=== PATIENT | male | born 1950 | race Caucasian/White ===

== ENCOUNTER 2019-11-03 09:23 | Outpatient (RCR) | payer MEDICARE, OTHER, SELFPAY | END 2019-11-03 23:59 | disposition home or self-care (01) | LOC: ANHAUDIO 09:23 | PROVIDERS: PCP Family Medicine; Visit Provider Family Medicine | DX: Z46.1 Encounter for fitting and adjustment of hearing aid (principal) | CPT/HCPCS: 92593 ==

== ENCOUNTER 2019-12-16 11:22 | Emergency (ER) | payer MEDICARE, OTHER, SELFPAY ==
[2019-12-16 11:30] VITALS: BP 110/67; PULSE 84; RESP 16; TEMP 37.2; O2SAT 99
--- NOTE | 2019-12-16 11:46 | ED.ABDPAIN ---
HPI - Abdominal Pain General Chief Complaint: Abdominal Pain Stated Complaint: abdominal pain Time Seen by Provider: 12/16/19 11:30 Source: patient Mode of arrival: ambulatory Limitations: no limitations History of Present Illness HPI narrative: Timothy Lindsay is a 69 yo male with a PMH of CKD, memory issues, who comes to express care for evaluation of right lower abdominal pain. Pain started 2 to 3 days ago with gradually increasing intensity rates the pain on palpation at 8 out of 10, has not had anything to eat or drink today as started dry heaving upon awakening. States pain is fine if not moving Related Data Allergies Allergy/AdvReac Type Severity Reaction Status Date / Time piroxicam Allergy Mild PT DOESN'T Verified 04/29/13 08:50 REMEMBER Sulfa (Sulfonamide Allergy Unknown Verified 07/01/17 08:32 Antibiotics) Review of Systems Review of Systems: Narrative: CONSTITUTIONAL: Denies fever, chills, sweats. EYES: Denies visual changes, redness, discharge. ENT: Denies rhinorrhea, congestion, sore throat, otalgia. CARDIOVASCULAR: Denies chest pain, palpitations, edema. RESPIRATORY: Denies dyspnea, wheezing, cough GASTROINTESTINAL: has RLQ abdominal pain, nausea, vomiting, no diarrhea. GENITOURINARY: Denies dysuria, hematuria, abnormal discharge SKIN: Denies rash or itching. MUSCULOSKELETAL: Denies acute back pain, joint pain, or myalgia. NEUROLOGIC: Denies numbness, or focal weakness. PSYCHIATRIC: Denies anxiety or depression. [facility] Past Medical History Medical History (Updated 12/16/19 @ 11:57 by Katelyn Treadwell CNP) Arthritis Interstitial pulmonary disease Family History Family History Mother Depression, Onset Age: 84 Hypertension Patient's mother is Family history of dementia Father Patient's father is Malignant neoplasm of prostate Family history of lymphoma Family history of malignant neoplasm of urinary bladder Grandparent Family history of cardiovascular disease Carcinoma of colon Other Family history of malignant neoplasm of ovary Social History Social History Smoking status: Former smoker Second hand tobacco smoke exposure: Yes Smoking end date: 11/02/02 Alcohol intake: current Comments At time of signature, I agree with nursing past medical, surgical, social and family history. There is no relevant family history pertinent to the presenting complaint. Exam Narrative: Exam Narrative: GENERAL: This is a well-nourished, well-developed patient, in moderate distress. HEAD: normocephalic, atraumatic. EYES: Sclera clear/white. Vision is grossly intact. EARS: External ears normal, Hearing grossly intact. NOSE: External nose normal with no obvious nasal discharge, nares without redness, no rhinorrhea. THROAT: Mucous membranes moist, posterior pharynx clear. NECK: Neck supple, non-tender without lymphadenopathy, CARDIOVASCULAR: Regular rate and rhythm without murmurs, gallops, or rubs. RESPIRATORY: Clear to auscultation. Breath sounds equal bilaterally. No wheezes, rales, or rhonchi. GASTROINTESTINAL: Abdomen soft, tender- RLQ 8/10 with palpation, nondistended. Bowel sounds are hypoactive. No hepato-splenomegaly, or palpable masses. SKIN: warm, intact with no suspicious lesions or rash, good texture and turgor. NEURO: awake, alert, and oriented to person, place and time. There were no obvious focal neurologic abnormalities. Steady gait EXTREMITIES: Normal range of motion. No edema. bilaterally. BACK: Nontender without deformity or crepitance.. Course Course Emergency Course: Discussed physical findings with pt and referred to [facility] ER for labs work/imaging/assessment Vital Signs Vital signs: Vital Signs Temperature 99 F 12/16/19 11:30 Pulse Rate 84 12/16/19 11:30 Respiratory Rate 16 12/16/19 11:30 Blood Pressure 110
--- NOTE | 2019-12-16 11:49 | PC.NURSE ---
After exam and discussion--Jamie Treadwell NP advised he go to ED for further testing and treatment--staff at [place] ED informed.
== END 2019-12-16 11:52 | disposition short-term general hospital (02) ==
PROVIDERS: Emergency Provider Nurse Practitioner; PCP Family Medicine
DX: R10.31 Right lower quadrant pain (principal); Z87.891 Personal history of nicotine dependence; M19.90 Unspecified osteoarthritis, unspecified site
CPT/HCPCS: 99212; G0463

== ENCOUNTER 2019-12-16 12:06 | Inpatient (IN) | payer MEDICARE, OTHER, SELFPAY ==
[2019-12-16] VITALS (9 sets, daily range): BP systolic 102–141; BP diastolic 58–77; PULSE 65–95; RESP 14–23; TEMP 36.6–37.5; O2SAT 92–100; BMI 31.6
--- NOTE | ~2019-12-16 | CT_ITS ---
EXAMINATION: CT abdomen pelvis w con DATE: 12/16/2019 14:11 INDICATION: Right lower quadrant abdominal pain. TECHNIQUE: Computed tomography (CT) of the abdomen and pelvis was performed with 100 mL Omnipaque-350 intravenous contrast. Automated exposure control and iterative reconstruction technique were employe d. The dose-length product was 1095.05 mGy-cm. COMPARISON: Chest CT dated 07/17/2017 FINDINGS: Unchanged flat intrafissural lymph node measuring 6 mm in maximal diameter and 2 mm in thickness suzanne g the anterior right minor fissure. No significant change in chronic mild peripheral reticular opacit ies in the bilateral lower lung zones without honeycombing. Heart size is normal. Atherosclerotic cor onary artery calcifications. No pericardial or pleural effusion. Mild bilateral gynecomastia. Small c alcified gallstone in the dependent neck of the normal appearing gallbladder. Liver, spleen, pancreas , left kidney and bilateral adrenal glands are normal. Approximately 5 cm cysts at the upper and lowe r poles of the right kidney. Prominent inflammatory stranding surrounding the dilated fluid-filled ap pendix which measures up to 16 mm in diameter. There is an obstructing calcified appendicolith in the proximal aspect of the appendix. Prominent likely reactive edematous wall thickening at the tip of t he cecum at the orifice of the appendix. Small bowel is normal with no obstruction. Diverticulum suzanne g the ascending colon without adjacent inflammatory change to suggest diverticulitis. Diffuse mild bl adder wall thickening which could be related to chronic outlet obstruction from the enlarged prostate . No abscess or free intraperitoneal gas. Small fat-containing umbilical hernia. No pathologically en larged abdominal or pelvic lymphadenopathy. There is calcified atherosclerosis of the aorta and many of the other arteries. Mild lumbar levoscoliosis with severe spondylosis. IMPRESSION: 1. Acute appendicitis. Dr. Gutierrez discussed these findings with Dr. Love at 2:22 PM. 2. Mild peripheral chronic interstitial lung disease with nonspecific interstitial pneumonia (NSIP) p attern. 3. Small fat-containing umbilical hernia. Reviewed, dictated and finalized at location A. [employer] IMPRESSION: 1. Acute appendicitis. Dr. Gutierrez discussed these findings with Dr. Love at 2:22 PM. 2. Mild peripheral chronic interstitial lung disease with nonspecific interstit ial pneumonia (NSIP) pattern. 3. Small fat-containing umbilical hernia.
[2019-12-16 12:20] LABS: Basophils Percent Auto 0.2 % (0.2-1.2); Eosinophils Percent Auto 0.1 % (0-4.4); Hematocrit 46.4 % (42.0-52.0); Hemoglobin 15.2 g/dL (14.0-18.0); Immature Granulocyte Absolute 0.07 K/mm3 (0.00-0.031); Immature Granulocyte Percent A 0.4 % (0-0.5); Lymphocytes Absolute Auto 1.57 K/mm3 (0.9-3.2); Lymphocytes Percent Auto 9.1 % (18.3-44.2); Mean Corpuscular HGB Conc 32.8 g/dl (32-36); Mean Corpuscular Hemoglobin 30.5 pg (26-34); Mean Platelet Volume 10.6 fl (7.4-10.4); Monocytes Absolute Auto 1.7 K/mm3 (0.1-0.6); Monocytes Percent Auto 9.9 % (2.6-8.5); Neutrophils Absolute Auto 13.8 K/mm3 (1.3-6.7); Neutrophils Percent Auto 80.3 % (45.5-73.1); Platelet Count Result 237 k/mm3 (150-375); Red Blood Count 4.99 M/mm3 (4.6-6.20); Red Cell Distribution Width 13.4 % (11.5-14.5); White Blood Count 17.2 K/mm3 (4.5-10.0)
--- NOTE | 2019-12-16 13:20 | ED.ABDPAIN ---
HPI - Abdominal Pain General Chief Complaint: Abdominal Pain Stated Complaint: abd pain Time Seen by Provider: 12/16/19 13:20 Source: patient Mode of arrival: ambulatory Limitations: no limitations History of Present Illness HPI narrative: A 69 y/o male presents to the ED with c/o RLQ ABD pain for a couple days that has worsened since onset. Pt notes that the pain radiated to his chest last night but this has since resolved. Pt last ate at 9:00 PM last night. He reports N/V, but denies a fever, chills, dysuria, and hematuria. Pt has a PMHx of CKD and follows up Dr. Fuentes. Onset (ago): day(s) (couple) Location: RLQ Radiation: chest (resolved) Related Data Allergies Allergy/AdvReac Type Severity Reaction Status Date / Time piroxicam Allergy Mild PT DOESN'T Verified 12/16/19 15:24 REMEMBER Sulfa (Sulfonamide Allergy Unknown Unknown Verified 12/16/19 15:24 Antibiotics) Review of Systems Review of Systems: All systems reviewed & are unremarkable except as noted in HPI and below Constitutional: Constitutional: Denies chills and Denies fever(s) Gastrointestinal: Gastrointestinal: Reports abdominal pain (RLQ with radiation to chest (resolved)), Reports nausea and Reports vomiting Genitourinary: Genitourinary: Denies hematuria and Denies dysuria PMFSH Past Medical History Medical History Arthritis Collar bone fracture Interstitial pulmonary disease Sinus problem Staph infection Surgical History Surgical History H/O basal cell carcinoma excision left arm, nose H/O vasectomy Family History Family History Mother Depression, Onset Age: 84 Hypertension Patient's mother is Family history of dementia Father Patient's father is Malignant neoplasm of prostate Family history of lymphoma Family history of malignant neoplasm of urinary bladder Grandparent Family history of cardiovascular disease Carcinoma of colon Other Family history of malignant neoplasm of ovary Social History Social History Smoking status: Former smoker Second hand tobacco smoke exposure: Yes Smoking end date: 01/01/10 Alcohol intake: current Comments PCP: Dr. Seals Exam Narrative: Exam Narrative: GENERAL: Well-appearing, well-nourished, and in no acute distress. HEAD: Normocephalic, atraumatic EYES: PERRLA and EOMI, conjunctiva clear without discharge THROAT:Mucous membranes moist, Oropharynx normal without erythema, exudate, peritonsillar swelling or fluctuance NECK: Supple, without lymphadenopathy or mass RESPIRATORY: No respiratory distress, Airway patent, Respirations non-labored, Clear to auscultation without rales, rhonchi or wheeze HEART: Regular rate and rhythm. No murmur heard. Normal peripheral pulses. EXTREMITIES: No edema, normal strength with full range of motion. SKIN: Warm, dry, normal color without rash NEURO: Alert and oriented x3. CN 2-12 grossly intact. No focal deficits. PSYCH: Normal mood and affect. GI: Inspection: non-distended GI Palp: Yes Soft to palpation, Yes Tenderness to palpation present (GI) (RLQ, R flank), No Guarding due to palpation present (GI) and No Rebound tenderness present Auscultation: Hypoactive bowel sounds present Course Reevaluation(s) Reevaluation #1: I Discussed with patient that CT shows acute appendicitis. He states he last ate 9 pm last night. Awaiting surgical consultation. Date: 12/16/19 Time: 14:26 Consultations Consultation #1: Discussed case with Dr. Queen and he will call the OR. Date: 12/16/19 Time: 14:28 Vital Signs Vital signs: Vital Signs Temperature 99.4 F 12/16/19 12:08 Pulse Rate 82 12/16/19 12:08 Respiratory Rate 16 12/16/19 12:08 Blood Pressure 102/68 12/16/19 12:08 Pulse Oximetry 97
--- NOTE | 2019-12-16 13:38 | PC.NURSE ---
Patient to bathroom to attempt to give urine sample at this time.
[2019-12-16 13:39] LABS: Alanine Aminotransferase 20 U/L (4-50); Albumin Level 4.4 g/dL (3.5-5.1); Alkaline Phosphatase 87 U/L (38-126); Aspartate Amino Transferase 22 U/L (17-59); Bilirubin,Total 1.2 mg/dL (0.2-1.3); Blood Urea Nitrogen 16 mg/dL (9-20); Calcium 9.6 mg/dL (8.4-10.2); Carbon Dioxide 27 mmol/L (22-30); Chloride 97 mmol/L (98-107); Estimated CRCL calculation 48 ml/min; Estimated Glomerular Filt Rate 43; Glucose 122 mg/dL (75-110); Lipase 72 U/L (23-300); Potassium 4.6 mmol/L (3.4-5.0); Sodium 139 mmol/L (137-145)
[2019-12-16] MEDS: LACTATED RINGERS 1,000 ML 999 ML IV CONT (13:45)
[2019-12-16 14:12] LABS: Add Urine Microscopic? YES; Appearance Urine Clear (Clear); Bilirubin Urine Negative (Negative); Blood Urine Negative (Negative); Color Urine Yellow (Yellow); Glucose Urine UA Negative (Negative); Ketones Urine Negative (Negative); Leukocyte Esterase Ur Negative LEU/UL (Negative); Mucus Urine Moderate /lpf; Nitrate Urine Negative (Negative); Protein Urine 1+ mg/dL (Negative); RBC Urine 0-2 /hpf (0-2); Specific Grav Ur 1.024 (1.001-1.035); Squamous Epithelial Cell Urine Rare /hpf (Few); Urobilinogen Urine Negative mg/dL (<2.0); WBC Urine 0-3 /hpf
[2019-12-16] MEDS: LACTATED RINGERS 1,000 ML 30 ML IV CONT ×3 (15:00→19:23)
--- NOTE | 2019-12-16 15:12 | PC.NURSE ---
Patient to OR, preop at this time.
--- NOTE | 2019-12-16 17:15 | PM.SD ---
Same Day Admit/Disch: HPI History of Present Illness Chief complaint: abd pain Narrative: Timothy Lindsay is a 69 year old male with a 2 day history of right lower quadrant abdominal pain. The pain is gotten worse and he came to the emergency room. . He was noted to be tender in the right lower quadrant and right flank. [place] [address] scan was done and showed evidence of acute appendicitis with a 16 mm diameter appendix and surrounding inflammatory changes. Patient has received antibiotics and analgesics. He is taken to surgery now for laparoscopic appendectomy. [facility] Past Medical History Medical History Arthritis Collar bone fracture Interstitial pulmonary disease Sinus problem Staph infection Surgical History Surgical History H/O basal cell carcinoma excision left arm, nose H/O vasectomy Family History Family History Mother Depression, Onset Age: 84 Hypertension Patient's mother is Family history of dementia Father Patient's father is Malignant neoplasm of prostate Family history of lymphoma Family history of malignant neoplasm of urinary bladder Grandparent Family history of cardiovascular disease Carcinoma of colon Other Family history of malignant neoplasm of ovary Social History Social History Smoking status: Former smoker Second hand tobacco smoke exposure: Yes Smoking end date: 11/02/09 Alcohol intake: current Same Day Admit/Disch: Med Pre-admit Medications Home Medications Medication Instructions Recorded Confirmed Type hydrocodone-acetaminophen 1 - 2 tablet PO Q6H PRN #12 tablet 12/16/19 Rx Exam Const: General: cooperative, comfortable, no acute distress, alert and awake HENMT: Head: normocephalic, atraumatic, no contusions and no scalp lesions Eyes: Conjunctivae: conjunctivae normal Sclera: sclerae normal Pupils: Equal, round and reactive pupils present EOM: EOMs intact bilaterally Neck: Neck: normal visual inspection, no lymphadenopathy, trachea midline, supple, nontender and no JVD Thyroid: abnormal thyroid Resp: Effort & Inspection: normal respiratory effort Auscultation: clear to auscultation bilaterally Cardio: Rate: regular rate Rhythm: regular rhythm GI: Inspection: normal to inspection, non-distended and no scars GI Palp: Yes Soft to palpation, Yes Tenderness to palpation present (GI) ( right lower quadrant and a little towards the flank.), Yes Guarding due to palpation present (GI), No Hernia present and No Ascites present Auscultation: normal bowel sounds Skin: Lesions: no lesions Rashes: no rashes Neuro: General: no focal motor deficits and CN's II-XI intact bilaterally Cranial nerves: Yes Equal, round and reactive pupils present Motor exam (neuro): Motor abnormalities not present Extrem: General: no clubbing, cyanosis or edema and edema Psych: Affect: normal affect Thought process: Normal thought process present Insight: Good insight present (Psych) DS: Data Data Completed and Pending Labs on day of discharge: Labs from last 24 hours 12/16/19 12/16/19 12/16/19 13:51 13:18 12:12 WBC 17.2 H RBC 4.99 Hgb 15.2 Hct 46.4 MCV 93.0 MCH 30.5 MCHC 32.8 RDW 13.4 Plt Count 237 MPV 10.6 H Immature Gran % (Auto) 0.4 Neut % (Auto) 80.3 H Lymph % (Auto) 9.1 L [place] % (Auto) 9.9 H Eos % (Auto) 0.1 Baso % (Auto) 0.2 Lymph # (Auto) 1.57 [place] # (Auto) 1.7 H Eos # (Auto) 0.0 Baso # (Auto) 0.0 Abs Immat Gran (auto) 0.07 H Absolute Neuts (auto) 13.8 H Absolute Nucleated RBC 0.0 Nucleated RBC % 0.0 Sodium 139 Potassium 4.6 Chloride 97 L Carbon Dioxide 27 BUN 16 Creatinine 1.6
--- NOTE | 2019-12-16 17:19 | WPDANESEPPF ---
Anes - Initial Pre Proc Eval Procedure: Operation Date: 12/16/19 17:30 Proposed Procedures p Laparoscopic Appendectomy - Darek Queen MD Date/Time: 12/16/19 17:19 Surgeon: Darek Queen MD Pre Op Diagnosis: abd pain Patient Data Age: 69 Gender: M Height: 1.83 m Weight: 106 kg Last Vital Signs Temp 37.4 C 12/16/19 15:00 Pulse 95 12/16/19 15:00 Resp 18 12/16/19 15:00 BP 138/67 12/16/19 15:00 Pulse Ox 98 12/16/19 15:00 Allergies Allergy/AdvReac Type Severity Reaction Status Date / Time piroxicam Allergy Mild PT DOESN'T Verified 12/16/19 15:24 REMEMBER Sulfa (Sulfonamide Allergy Unknown Unknown Verified 12/16/19 15:24 Antibiotics) Home Medications Medication Instructions Recorded Confirmed Type hydrocodone-acetaminophen 1 - 2 tablet PO Q6H PRN #12 tablet 12/16/19 Rx Laboratory Tests 12/16/19 12/16/19 12/16/19 12:12 13:18 13:51 WBC 17.2 K/mm3 H K/mm3 (4.5-10.0) RBC 4.99 M/mm3 M/mm3 (4.6-6.20) Hgb 15.2 g/dL g/dL (14.0-18.0) Hct 46.4 % % (42.0-52.0) MCV 93.0 fl fl (80-100) MCH 30.5 pg pg (26-34) MCHC 32.8 g/dl g/dl (32-36) RDW 13.4 % % (11.5-14.5) Plt Count 237 k/mm3 k/mm3 (150-375) MPV 10.6 fl H fl (7.4-10.4) Immature Gran % (Auto) 0.4 % % (0-0.5) Neut % (Auto) 80.3 % H % (45.5-73.1) Lymph % (Auto) 9.1 % L % (18.3-44.2) [place] % (Auto) 9.9 % H % (2.6-8.5) Eos % (Auto) 0.1 % % (0-4.4) Baso % (Auto) 0.2 % % (0.2-1.2) Lymph # (Auto) 1.57 K/mm3 K/mm3 (0.9-3.2) [place] # (Auto) 1.7 K/mm3 H K/mm3 (0.1-0.6) Eos # (Auto) 0.0 K/mm3 K/mm3 (0-0.3) Baso # (Auto) 0.0 K/mm3 K/mm3 (0.0-0.1) Abs Immat Gran (auto) 0.07 K/mm3 H K/mm3 (0.00-0.031) Absolute Neuts (auto) 13.8 K/mm3 H K/mm3 (1.3-6.7) Absolute Nucleated RBC 0.0 K/mm3 K/mm3 (0.0-0.012) Nucleated RBC % 0.0 % % (0.0-0.2) Sodium 139 mmol/L mmol/L (137-145) Potassium 4.6 mmol/L mmol/L (3.4-5.0) Chloride 97 mmol/L L mmol/L (98-107) Carbon Dioxide 27 mmol/L mmol/L (22-30) BUN 16 mg/dL mg/dL (9-20) Creatinine 1.60 mg/dL H mg/dL (0.7-1.3) Estim Creat Clear Calc 48 ml/min ml/min Estimated GFR 43 L (59 - ) Glucose 122 mg/dL H mg/dL (75-110) Calcium 9.6 mg/dL mg/dL (8.4-10.2) Total Bilirubin 1.2 mg/dL mg/dL (0.2-1.3) AST 22 U/L U/L (17-59) ALT 20 U/L U/L (4-50) Alkaline Phosphatase 87 U/L U/L (38-126) Total Protein 8.0 g/dL g/dL (6.3-8.2) Albumin 4.4 g/dL g/dL (3.5-5.1) Lipase 72 U/L U/L (23-300) Urine Color Yellow (Yellow) Urine Appearance Clear (Clear) Urine pH 6.0 (5.0-9.0) Ur Specific [place] 1.024 (1.001-1.035) Urine Protein 1+ mg/dL H mg/dL (Negative) Urine Glucose (UA) Negative mg/dL mg/dL (Negative) Urine Ketones Negative mg/dL mg/dL (Negative) Ur Blood (Man) Negative (Negative) Urine Nitrate Negative (Negative) Urine Bilirubin Negative (Negative) Urine Urobilinogen Negative mg/dL mg/dL (<2.0) Leukocyte Esterase Rfl Negative KRISTINA/UL KRISTINA/UL (Negative) Urine RBC 0-2 /hpf /hpf (0-2) Urine WBC 0-3 /hpf /hpf Ur Squamous Epith Cells Rare /hpf /hpf (Few) Urine Mucus Moderate /lpf H /lpf Patient hx anesthesia problems: none Family hx anesthesia problems: none PMFSH Past Medical History Medical History Arthritis Collar bone fracture Interstitial pulmonary disease Sinus problem Staph infection Surgic
--- NOTE | 2019-12-16 17:24 | PM.PROC ---
Procedure Note - Detailed Date of procedure: 12/16/19 Pre-op diagnosis: abd pain acute appendicitis Post-op diagnosis: other (Retrocecal ruptured appendicitis with localized peritonitis) Procedure performed: Laparoscopic appendectomy Description of procedure: The patient was taken to surgery and induced into general anesthesia. The abdomen was prepped and draped. Trocars were placed in the usual fashion using 0.5% Marcaine with epinephrine and applied Medical optical trocars. A 5 mm camera was used. The patient was placed in Trendelenburg with the right side elevated. When I initially tried to locate the appendix, it was immediately obvious that there was much more inflammation than is normally expected with appendicitis. I placed an extra 5 mm port in the right upper quadrant. This was used to assist in retraction and exposure. Adhesions of the distal ileum to the right lower quadrant and pelvis were taken down using a combination of sharp dissection and some cautery. Eventually the appendix was found. It was quite a large inflammatory mass and was retrocecal. Using suction and some gentle blunt dissection I was able to mobilize it from the lateral peritoneal sidewall. It was still very adherent at its base to the cecum and distal ileum. I grasped the appendix with an atraumatic grasper but it had ruptured previously and there was spillage of some purulent content and small pieces of stool. The purulent material was rapidly suctioned away. All the stool was retrieved and removed from the field. Continued dissection of the appendix eventually allowed us to mobilize it so that the base of the appendix was visible attached to the cecum. The mesoappendix was exposed. The mesoappendix was dissected and the appendiceal vessels cauterized for hemostasis. Eventually the base of the appendix was skeletonized. The appendix was ligated at its base with a Vicryl endo-loop. It was amputated just above the ligature and the mucosa of the appendiceal stump was cauterized. The appendix was immediately placed in an Endo-Catch bag and retrieved through the 10 11 left lower quadrant trocar site. We replaced the 10 11 trocar and reviewed the right lower quadrant and areas of dissection. Repeated suction and irrigation with saline was carried out. Eventually this looked very clear with only a slight blood tinge. All looked good with no evidence of bleeding or other problems. We evacuated CO2 and removed the trocar sleeves. Skin wounds were closed with subcuticular 4 O Monocryl skin suture. The wounds were dressed with Exofin surgical adhesive. The patient was awakened and taken to recovery in good condition. Sponge and needle counts were correct x2. Anesthesia: GETA and local (0.5% Marcaine with epinephrine) Surgeon: Darek Queen MD Client Success Manager: Aniket LEDEZMA Estimated blood loss (mL): 20 Drains: No Packing: No Pathology: yes (Appendix) Complications: None Condition: stable Disposition: PACU Findings: Ruptured appendicitis, retrocecal. No abscess.
[2019-12-16] MEDS: BUPIVACAINE/EPINEPHRINE 0.5% 30 ML VIAL INFILTRATE (18:28)
--- NOTE | 2019-12-16 19:16 | PM.IMHP ---
H&P: HPI History of Present Illness Chief complaint: abd pain Narrative: Timothy Lindsay is a 69 year old male who presented with at least 2 days of right lower quadrant abdominal pain. The pain got worse in the last 24-48 hours. He came to the emergency room where he was noted to have right lower quadrant tenderness. [place] [address] scan of the abdomen and pelvis showed he had acute appendicitis with a 16 mm dilated appendix with periappendiceal inflammatory changes. He is taken to surgery now as an outpatient for laparoscopic appendectomy. Review of Systems Review of Systems: All systems reviewed & are unremarkable except as noted in HPI and below Constitutional: Constitutional: Denies headache(s) ENT: Denies headache(s) Cardiovascular: Cardiovascular: Denies chest pain and Denies dyspnea Respiratory: Respiratory: Denies cough and Denies dyspnea Gastrointestinal: Gastrointestinal: Denies bloating, Denies constipation and Denies nausea Genitourinary: Comments: Chronic kidney disease with creatinine running about 1.6-1.7 Neurologic: Denies confusion and Denies headache(s) Psychiatric: Psychiatric: Denies confusion Allergic/Immunologic: Allergic/Immunologic: Reports other (Positive PEDRO but no history lupus) [facility] Past Medical History Medical History Arthritis Collar bone fracture Interstitial pulmonary disease Sinus problem Staph infection Surgical History Surgical History H/O basal cell carcinoma excision left arm, nose H/O vasectomy Family History Family History Mother Depression, Onset Age: 84 Hypertension Patient's mother is Family history of dementia Father Patient's father is Malignant neoplasm of prostate Family history of lymphoma Family history of malignant neoplasm of urinary bladder Grandparent Family history of cardiovascular disease Carcinoma of colon Other Family history of malignant neoplasm of ovary Social History Social History Smoking status: Former smoker Second hand tobacco smoke exposure: Yes Smoking end date: 11/02/09 Alcohol intake: current Meds Home Medications and Allergies Home Medications Medication Instructions Recorded Confirmed Type hydrocodone-acetaminophen 1 - 2 tablet PO Q6H PRN #12 tablet 12/16/19 Rx Allergies Allergy/AdvReac Type Severity Reaction Status Date / Time piroxicam Allergy Mild PT DOESN'T Verified 12/16/19 15:24 REMEMBER Sulfa (Sulfonamide Allergy Unknown Unknown Verified 12/16/19 15:24 Antibiotics) Vital Signs Vital Signs - 24 hr 12/16/19 12:08 12/16/19 13:38 12/16/19 15:00 Temperature 37.4 C 37.2 C 37.4 C Pulse Rate 82 81 95 Respiratory Rate 16 14 18 Blood Pressure 102/68 103/68 138/67 Pulse Oximetry 97 95 98 Exam Const: General: cooperative, comfortable, no acute distress, alert and awake; No confusion Orientation/consciousness: No confusion HENMT: Head: normocephalic, atraumatic, no contusions and no scalp lesions Ears: external ears normal General nose exam: Normal external nose present Face and sinus: face symmetric and dry mucous membranes Mouth: Yes Normal oral and palatal mucosa present and Yes tongue normal Throat: posterior oropharynx normal Eyes: Conjunctivae: conjunctivae normal Sclera: sclerae normal Pupils: Equal, round and reactive pupils present EOM: EOMs intact bilaterally Neck: Neck: normal visual inspection, no lymphadenopathy, trachea midline, supple, nontender and no JVD Thyroid: abnormal thyroid Resp: Effort & Inspection: normal respiratory effort Auscultation: clear to auscultation bilaterally Cardio: Rate: regular rate Rhythm: regular rhythm GI: Inspection: normal to inspection and no scar
--- NOTE | 2019-12-16 20:36 | ADMGEN ---
This patient, Timothy Lindsay, was admitted to Medical Room 348-01. Patient/family oriented to hospital policies and general routines including ID bracelet, bed and alarms, visiting hours, pain management, procedures, bathroom and other care routines, personal items, smoking policy, room service/diet, and visiting hours. Valuables list has been completed. Information on how to activate the Rapid Response Team has been discussed. Patient/Family are encouraged to report perceived risks to care and to ask questions if they do not understand what they are told or what they should do.
[2019-12-16] MEDS: LACTATED RINGERS 1,000 ML 80 ML IV CONT (21:00)
[2019-12-16] MEDS: ENOXAPARIN 30 MG/0.3 ML SYRINGE SUB-Q (23:09)
[2019-12-17 05:10] LABS: Basophils Percent Auto 0.1 % (0.2-1.2); Hematocrit 39.7 % (42.0-52.0); Hemoglobin 13.1 g/dL (14.0-18.0); Immature Granulocyte Absolute 0.06 K/mm3 (0.00-0.031); Immature Granulocyte Percent A 0.4 % (0-0.5); Lymphocytes Absolute Auto 1.25 K/mm3 (0.9-3.2); Lymphocytes Percent Auto 8.2 % (18.3-44.2); Mean Corpuscular Hemoglobin 30.9 pg (26-34); Mean Corpuscular Volume 93.6 fl (80-100); Mean Platelet Volume 10.2 fl (7.4-10.4); Monocytes Absolute Auto 1.5 K/mm3 (0.1-0.6); Monocytes Percent Auto 9.6 % (2.6-8.5); Neutrophils Absolute Auto 12.5 K/mm3 (1.3-6.7); Neutrophils Percent Auto 81.7 % (45.5-73.1); Platelet Count Result 203 k/mm3 (150-375); Red Blood Count 4.24 M/mm3 (4.6-6.20); Red Cell Distribution Width 13.6 % (11.5-14.5); White Blood Count 15.3 K/mm3 (4.5-10.0)
[2019-12-17 05:29] LABS: Blood Urea Nitrogen 16 mg/dL (9-20); Calcium 8.5 mg/dL (8.4-10.2); Carbon Dioxide 26 mmol/L (22-30); Chloride 99 mmol/L (98-107); Estimated CRCL calculation 48 ml/min; Estimated Glomerular Filt Rate 43; Glucose 132 mg/dL (75-110); Potassium 4.5 mmol/L (3.4-5.0); Sodium 135 mmol/L (137-145)
[2019-12-17 06:00] VITALS: BP 109/62; PULSE 71; RESP 16; TEMP 36.5; O2SAT 94
--- NOTE | 2019-12-17 06:43 | WPDANESPN ---
Anes - Prog Note Post-Op Date/Time: 12/17/19 06:43 Cardiovascular status: normal Respiratory status: normal Airway patency: baseline Mental status: baseline Post-Op hydration status: normal Vital Signs: Last Vital Signs Temp 36.5 C 12/17/19 06:00 Pulse 71 12/17/19 06:00 Resp 16 12/17/19 06:00 BP 109/62 12/17/19 06:00 Pulse Ox 94 12/17/19 06:00 I/O: Intake & Output 12/16/19 12/16/19 12/17/19 15:59 23:59 07:59 Intake Total 1050 350 700 Output Total 150 Balance 1050 350 550 Laboratory Tests 12/17/19 05:02 12/17/19 05:02 12/16/19 12/16/19 12/16/19 12:12 13:18 13:51 WBC 17.2 H RBC 4.99 Hgb 15.2 Hct 46.4 MCV 93.0 MCH 30.5 MCHC 32.8 RDW 13.4 Plt Count 237 MPV 10.6 H Immature Gran % (Auto) 0.4 Neut % (Auto) 80.3 H Lymph % (Auto) 9.1 L Martin % (Auto) 9.9 H Eos % (Auto) 0.1 Baso % (Auto) 0.2 Lymph # (Auto) 1.57 Martin # (Auto) 1.7 H Eos # (Auto) 0.0 Baso # (Auto) 0.0 Abs Immat Gran (auto) 0.07 H Absolute Neuts (auto) 13.8 H Absolute Nucleated RBC 0.0 Nucleated RBC % 0.0 Sodium 139 Potassium 4.6 Chloride 97 L Carbon Dioxide 27 BUN 16 Creatinine 1.60 H Estim Creat Clear Calc 48 Estimated GFR 43 L Glucose 122 H Calcium 9.6 Total Bilirubin 1.2 AST 22 ALT 20 Alkaline Phosphatase 87 Total Protein 8.0 Albumin 4.4 Lipase 72 Urine Color Yellow Urine Appearance Clear Urine pH 6.0 Ur Specific [place] 1.024 Urine Protein 1+ H Urine Glucose (UA) Negative Urine Ketones Negative Ur Blood (Man) Negative Urine Nitrate Negative Urine Bilirubin Negative Urine Urobilinogen Negative Leukocyte Esterase Rfl Negative Urine RBC 0-2 Urine WBC 0-3 Ur Squamous Epith Cells Rare Urine Mucus Moderate H 02/15/20 02/15/20 05:02 05:02 WBC 15.3 H RBC 4.24 L Hgb 13.1 L Hct 39.7 L MCV 93.6 MCH 30.9 MCHC 33.0 RDW 13.6 Plt Count 203 MPV 10.2 Immature Gran % (Auto) 0.4 Neut % (Auto) 81.7 H Lymph % (Auto) 8.2 L Martin % (Auto) 9.6 H Eos % (Auto) 0.0 Baso % (Auto) 0.1 L Lymph # (Auto) 1.25 Martin # (Auto) 1.5 H Eos # (Auto) 0.0 Baso # (Auto) 0.0 Abs Immat Gran (auto) 0.06 H Absolute Neuts (auto) 12.5 H Absolute Nucleated RBC 0.0 Nucleated RBC % 0.0 Sodium 135 L Potassium 4.5 Chloride 99 Carbon Dioxide 26 BUN 16 Creatinine 1.60 H Estim Creat Clear Calc 48 Estimated GFR 43 L Glucose 132 H Calcium 8.5 Total Bilirubin AST ALT Alkaline Phosphatase Total Protein Albumin Lipase Urine Color Urine Appearance Urine pH Ur Specific [place] Urine Protein Urine Glucose (UA) Urine Ketones Ur Blood (Man) Urine Nitrate Urine Bilirubin Urine Urobilinogen Leukocyte Esterase Rfl Urine RBC Urine WBC Ur Squamous Epith Cells Urine Mucus Post-procedural complaints: none Patient Feedback: Patient satisfied with anesthetic care.
[2019-12-17 08:00] VITALS: PULSE 71; RESP 16; O2SAT 94
[2019-12-17] MEDS: PANTOPRAZOLE 40 MG TABLET PO (08:05)
[2019-12-17] MEDS: ENOXAPARIN 30 MG/0.3 ML SYRINGE SUB-Q ×2 (08:05→21:38)
[2019-12-17] MEDS: LACTATED RINGERS 1,000 ML 80 ML IV CONT (10:45)
--- NOTE | 2019-12-17 10:52 | PM.PNGS ---
Progress Note: A&P Assessment and Plan (1) Acute appendicitis: Qualifiers: Acute appendicitis type: unspecified acute appendicitis type Qualified Code(s): K35.80 - Unspecified acute appendicitis Code(s): K35.80 - Unspecified acute appendicitis Status: Acute Assessment and Plan: looks good postop day 1. Will start solid food. Saline lock IV and continue IV Zosyn. Taking oral analgesics. Recheck labs and clinical exam again tomorrow. (2) CKD (chronic kidney disease): Code(s): N18.9 - Chronic kidney disease, unspecified Status: Chronic Assessment and Plan: Creatinine stable at 1.6. Subjective Subjective Date/Time Seen: 12/17/19 10:52 Patient reports: no new complaints, pain is less, no bowel movement and afebrile Exam GI: Inspection: non-distended and incision ( dry and healing well) GI Palp: Yes Soft to palpation and Yes Tenderness to palpation present (GI) Auscultation: normal bowel sounds Objective Data Vital Signs Vital Signs: Vital Signs - 24 hr 12/16/19 12:08 12/16/19 13:38 12/16/19 15:00 Temperature 37.4 C 37.2 C 37.4 C Pulse Rate 82 81 95 Respiratory Rate 16 14 18 Blood Pressure 102/68 103/68 138/67 Pulse Oximetry 97 95 98 12/16/19 15:28 12/16/19 19:23 12/16/19 19:38 Temperature 37.1 C 36.6 C Pulse Rate 69 88 70 Respiratory Rate 14 23 H 16 Blood Pressure 112/58 L 108/60 111/66 Pulse Oximetry 92 95 100 12/16/19 19:53 12/16/19 20:08 12/16/19 20:24 Temperature Pulse Rate 69 65 67 Respiratory Rate 20 19 19 Blood Pressure 103/67 103/67 109/67 Pulse Oximetry 97 95 95 12/17/19 06:00 12/17/19 08:00 Temperature 36.5 C Pulse Rate 71 71 Respiratory Rate 16 16 Blood Pressure 109/62 Pulse Oximetry 94 94 Intake/Output Intake/Output: Intake & Output 12/14/19 12/15/19 12/16/19 12/17/19 23:59 23:59 23:59 23:59 Intake Total 1400 2550 Output Total 150 Balance 1400 2400 Meds/Results Medications: Active Medications Generic Name Dose Route Start Last Admin Trade Name Freq PRN Reason Stop Dose Admin Acetaminophen 500 mg 12/16/19 20:28 Tylenol Tablet PO Q6H PRN Mild Pain (1-3) or Fever Hydrocodone Bitart/Acetaminophen 1 tab 12/16/19 20:28 [place] 5-325 Mg PO Q4H PRN Pain Rated 4-6 Hydrocodone Bitart/Acetaminophen 1 tab 12/16/19 20:28 12/17/19 01:39 [place] 7.5-325 Mg PO 1 tab Q4H PRN Administration Pain Rated 7-10 Enoxaparin Sodium 30 mg 12/16/19 21:00 12/17/19 08:05 Lovenox SUB-Q 30 mg Q12HR [place] Administration Piperacillin/Tazobactam/Dextrose 3.375 gm in 50 mls @ 100 mls/hr 12/16/19 21:00 12/17/19 07:15 Zosyn 3.375 Gm/D5w 50ml Pm IVPB Infused Q6HR [place] Infusion Morphine Sulfate 1 mg 12/16/19 20:28 Morphine Sulfate Inj IV PUSH Q2H PRN Pain Rated 4-6 Morphine Sulfate 2 mg 12/16/19 20:38 Morphine Sulfate Inj IV PUSH Q2H PRN Pain Rated 7-10 Naloxone HCl 0.1 mg 12/16/19 20:28 Narcan IV PUSH Q2M PRN Opiate Reversal Ondansetron HCl 4 mg 12/16/19 20:28 Zofran Inj IV PUSH Q4H PRN Nausea And Vomiting Pantoprazole Sodium 40 mg 12/17/19 09:00 12/17/19 08:05 Protonix PO 40 mg QAM [place] Administration Radiology Results: ITS Impressions Abdomen/Pelvis CT 12/16/19 14:15 IMPRESSION: 1. Acute appendicitis. Dr. Gutierrez discussed these findings with Dr. Love at 2:22 PM. 2. Mild peripheral chronic interstitial lung disease with nonspecific interstitial pneumonia (NSIP) pattern. 3. Small fat-containing umbilical hernia. Labs Labs: Laboratory Results - last 24 hr 12/16/19 12/16/19 12/16/19 12:12 13:18 13:51 WBC 17.2 H RBC 4.99 Hgb 15.2 Hct 46.4 MCV 93.0 MCH 30.5 MCHC 32.8 RDW 13.4 Plt Count 237 MPV 10.6 H Immature Gran % (Auto) 0.4 Neut % (Auto) 80.3 H Lymph % (Auto) 9.1 L [place] % (Auto) 9.9 H Eos % (Auto) 0.1
[2019-12-17 14:00] VITALS: BP 118/70; PULSE 72; RESP 18; TEMP 36.7; O2SAT 96
[2019-12-17 22:00] VITALS: BP 120/67; PULSE 81; RESP 18; TEMP 37.2; O2SAT 94
[2019-12-18 05:25] VITALS: BP 114/64; PULSE 71; RESP 16; TEMP 37.3; O2SAT 95
[2019-12-18 06:04] LABS: Hematocrit 39.7 % (42.0-52.0); Hemoglobin 13.1 g/dL (14.0-18.0); Mean Corpuscular Volume 93.9 fl (80-100); Mean Platelet Volume 10.2 fl (7.4-10.4); Platelet Count Result 189 k/mm3 (150-375); Red Blood Count 4.23 M/mm3 (4.6-6.20); Red Cell Distribution Width 13.5 % (11.5-14.5); White Blood Count 10.8 K/mm3 (4.5-10.0)
[2019-12-18 06:34] LABS: Blood Urea Nitrogen 17 mg/dL (9-20); Calcium 8.7 mg/dL (8.4-10.2); Carbon Dioxide 28 mmol/L (22-30); Estimated CRCL calculation 41 ml/min; Estimated Glomerular Filt Rate 35; Glucose 103 mg/dL (75-110); Sodium 137 mmol/L (137-145)
[2019-12-18 08:00] LABS: Chloride 100 mmol/L (98-107)
[2019-12-18] MEDS: ENOXAPARIN 30 MG/0.3 ML SYRINGE SUB-Q ×2 (09:44→20:02)
[2019-12-18] MEDS: PANTOPRAZOLE 40 MG TABLET PO (09:44)
--- NOTE | 2019-12-18 09:46 | PM.PNGS ---
Progress Note: A&P Assessment and Plan (1) Ruptured suppurative appendicitis: Code(s): K35.32 - Acute appendicitis with perforation and localized peritonitis, without abscess Status: Acute Assessment and Plan: improving nicely with no evidence of abscess or ileus. Pain is minimal. He is tolerating oral intake. Continue IV antibiotics. (2) Acute kidney injury superimposed on chronic kidney disease: Code(s): N17.9 - Acute kidney failure, unspecified; N18.9 - Chronic kidney disease, unspecified Status: Acute Assessment and Plan: Creatinine has bumped up to 1.9 today. Will give saline bolus and IV saline at 80 an hour. Recheck labs again tomorrow. If goes back to baseline, can be discharged tomorrow. Subjective Subjective Date/Time Seen: 12/18/19 09:46 Post Op day: 2 Patient reports: no new complaints, feels better, pain is less, tolerating a regular diet and afebrile Review of Systems Review of Systems: All systems reviewed & are unremarkable except as noted in HPI and below Constitutional: Constitutional: Denies headache(s) ENT: Denies headache(s) Cardiovascular: Cardiovascular: Denies chest pain and Denies dyspnea Respiratory: Respiratory: Denies cough and Denies dyspnea Gastrointestinal: Gastrointestinal: Reports as per HPI Neurologic: Denies confusion and Denies headache(s) Psychiatric: Psychiatric: Denies confusion Exam Const: General: comfortable and no acute distress; No confusion Orientation/consciousness: patient oriented x3 and No confusion Resp: Effort & Inspection: normal respiratory effort Auscultation: clear to auscultation bilaterally Cardio: Rate: regular rate Rhythm: regular rhythm GI: Inspection: non-distended and incision ( all are healing well) GI Palp: Yes Soft to palpation, Yes Tenderness to palpation present (GI) ( mild postoperative tenderness as expected), No Guarding due to palpation present (GI) and No Rebound tenderness present Auscultation: normal bowel sounds Neuro: General: patient oriented x3, no focal motor deficits and No confusion Extrem: General: no calf tenderness and no edema Psych: Affect: normal affect Insight: Good insight present (Psych) Judgement: Good judgement present (Psych) Objective Data Vital Signs Vital Signs: Vital Signs - 24 hr 12/17/19 14:00 12/17/19 22:00 12/18/19 05:25 Temperature 36.7 C 37.2 C 37.3 C Pulse Rate 72 81 71 Respiratory Rate 18 18 16 Blood Pressure 118/70 120/67 114/64 Pulse Oximetry 96 94 95 Intake/Output Intake/Output: Intake & Output 12/15/19 12/16/19 12/17/19 12/18/19 23:59 23:59 23:59 23:59 Intake Total 1400 4187 890 Output Total 1750 1500 Balance 1400 2397 -900 Meds/Results Medications: Active Medications Generic Name Dose Route Start Last Admin Trade Name Freq PRN Reason Stop Dose Admin Acetaminophen 500 mg 12/16/19 20:28 Tylenol Tablet PO Q6H PRN Mild Pain (1-3) or Fever Hydrocodone Bitart/Acetaminophen 1 tab 12/16/19 20:28 [place] 5-325 Mg PO Q4H PRN Pain Rated 4-6 Hydrocodone Bitart/Acetaminophen 1 tab 12/16/19 20:28 12/17/19 01:39 [place] 7.5-325 Mg PO 1 tab Q4H PRN Administration Pain Rated 7-10 Enoxaparin Sodium 30 mg 12/16/19 21:00 12/18/19 09:44 Lovenox SUB-Q 30 mg Q12HR [place] Administration Piperacillin/Tazobactam/Dextrose 3.375 gm in 50 mls @ 100 mls/hr 12/16/19 21:00 12/18/19 07:00 Zosyn 3.375 Gm/D5w 50ml Pm IVPB Infused Q6HR [place] Infusion Sodium Chloride 1,000 mls @ 999 mls/hr 12/18/19 09:44 Normal Saline Iv IV CONT 12/18/19 10:44 .Q1H1M ONE Sodium Chloride 1,000 mls @ 80 mls/hr 12/18/19 09:45 Normal Saline Iv IV CONT .[id number] [place] Morphine Sulfate 1 mg 12/16/19 20:28 Morphine Sulfate Inj IV PUSH Q2H PRN Pain Rated 4-6 Morphine Sulfate 2 mg 12/16/19 20:38 Morphine Sulfate Inj IV PUSH Q2H PRN Pain Rated 7-10 Nalo
[2019-12-18] MEDS: SODIUM CHLORIDE 0.9% IV 1,000 ML 999 ML IV CONT (10:10)
[2019-12-18] MEDS: SODIUM CHLORIDE 0.9% IV 1,000 ML 80 ML IV CONT ×2 (11:19→23:34)
[2019-12-18 14:00] VITALS: BP 114/59; PULSE 70; RESP 18; TEMP 36.8; O2SAT 96
[2019-12-18 22:00] VITALS: BP 125/74; PULSE 80; RESP 16; TEMP 36.7; O2SAT 97
[2019-12-19 05:36] LABS: Hematocrit 36.9 % (42.0-52.0); Hemoglobin 12.5 g/dL (14.0-18.0); Mean Corpuscular HGB Conc 33.9 g/dl (32-36); Mean Corpuscular Hemoglobin 31.2 pg (26-34); Mean Platelet Volume 9.8 fl (7.4-10.4); Platelet Count Result 201 k/mm3 (150-375); Red Blood Count 4.01 M/mm3 (4.6-6.20); Red Cell Distribution Width 12.9 % (11.5-14.5); White Blood Count 8.7 K/mm3 (4.5-10.0)
[2019-12-19 05:47] LABS: Blood Urea Nitrogen 16 mg/dL (9-20); Calcium 8.4 mg/dL (8.4-10.2); Carbon Dioxide 25 mmol/L (22-30); Chloride 104 mmol/L (98-107); Estimated CRCL calculation 45 ml/min; Estimated Glomerular Filt Rate 40; Glucose 93 mg/dL (75-110); Potassium 3.9 mmol/L (3.4-5.0); Sodium 138 mmol/L (137-145)
[2019-12-19 06:00] VITALS: BP 125/77; PULSE 65; RESP 16; TEMP 36.3; O2SAT 96
--- NOTE | 2019-12-19 08:51 | PM.DS ---
DS: Diagnosis Admitting Diagnosis Admitting Diagnosis: Unspecified acute appendicitis Discharge Diagnosis (1) Ruptured suppurative appendicitis: Code(s): K35.32 - Acute appendicitis with perforation and localized peritonitis, without abscess Status: Acute Assessment and Plan: PATIENT UNDERWENT LAPAROSCOPIC APPENDECTOMY ON DECEMBER 16, 2019. (2) Acute kidney injury superimposed on chronic kidney disease: Code(s): N17.9 - Acute kidney failure, unspecified; N18.9 - Chronic kidney disease, unspecified Status: Acute Assessment and Plan: RESPONDED TO IV FLUID ADMINISTRATION ON 12/18/2019. CREATININE BACK DOWN TO 1.7 ON DAY OF DISCHARGE. DS: Summary Time Spent with Patient Time attestation: Total time spent providing and/or coordinating discharge services: The patient is a 69-year-old gentleman who came to the emergency room with at least 2 days if not longer of right lower quadrant abdominal pain. The pain got much worse in the last 24-48 hours. [place] was [place] in [place] [address] and very tender in the right lower quadrant. A CT scan showed acute appendicitis with the 16 mm dilated appendix. There were periappendiceal inflammatory changes. The patient also was noted to have chronic kidney disease with creatinine running around 1.6-1.7. His CT scan also showed some mild chronic interstitial pulmonary disease. The patient was taken to surgery by Dr. rosenberg on the day of admission 12/16/2019. At surgery he was found to have a ruptured appendix that was retrocecal and had been walled off. There was no abscess. Laparoscopic appendectomy was performed. Postoperatively the patient was continued on IV Zosyn antibiotics. He looked good on postoperative day 1. But on postop day 2. His creatinine increased from 1.6-1.9. He was given a saline bolus as well as normal saline at 80 cc an hour throughout the day and evening. His creatinine was back down to 1.7 on the day of discharge 12/19/2019. His white count had decreased slowly and was normal by the day of discharge. The patient is able to be discharged on 12/19/2019 in good condition on oral antibiotics and analgesics. Exam GI: Inspection: non-distended, incision ( All incisions healing well) and visible herniation ( small umbilical hernia, nontender) GI Palp: Yes Soft to palpation, No Tenderness to palpation present (GI), No Guarding due to palpation present (GI) and No Rebound tenderness present Auscultation: normal bowel sounds DS: Data Data Completed and Pending Pending studies at discharge: Pending at discharge 12/16/19 18:28 Surgical [PTH] Routine Labs on day of discharge: Labs from last 24 hours 12/19/19 12/19/19 05:21 05:21 WBC 8.7 RBC 4.01 L Hgb 12.5 L Hct 36.9 L MCV 92.0 MCH 31.2 MCHC 33.9 RDW 12.9 Plt Count 201 MPV 9.8 Sodium 138 Potassium 3.9 Chloride 104 Carbon Dioxide 25 BUN 16 Creatinine 1.70 H Estim Creat Clear Calc 45 Estimated GFR 40 L Glucose 93 Calcium 8.4 Discharge Plan Discharge Attending physician on discharge: Darek Rosenberg Discharging Clinician: Darek Rosenberg Anticipated Discharge Date/Time: 12/19/19 08:57 Patient Disposition: Home, Self-Care Activity: may shower and no straining Diet: regular and low protein Wound Care Instructions: incision open to air Discharge Instructions: 1. May shower or bathe. 2. Call office for: -Wound increasingly painful or bleeding -Vomiting -Fever of greater than 101 degrees 3. Expect some blood on dressing and old blood on skin. 4. If no bowel movement for three days, take 1 oz. (30 ml) Milk of Magnesia, if no results, take Fleets enema. 5. No heavy lifting > 15-20 pounds for 2 weeks. 6. No driving for 3 days or while taking narcotic pain medications. 7. Up walking 10-30 minutes three times per day.
[2019-12-19] MEDS: PANTOPRAZOLE 40 MG TABLET PO (09:05)
[2019-12-19] MEDS: ENOXAPARIN 30 MG/0.3 ML SYRINGE SUB-Q (09:05)
== END 2019-12-19 10:27 | disposition home or self-care (01) | DRG 339 ==
LOC: ANHED 14:45 → ANHSURGERY 14:54 → ANH3MED 20:43
PROVIDERS: Emergency Medicine; Admitting Provider Surgery; Emergency Provider General Practice; PCP Family Medicine; Visit Provider Surgery
PROC: 0DTJ4ZZ Resection of Appendix, Percutaneous Endoscopic Approach (ICD-10-PCS; CPT 44970; principal; 2019-12-16 17:30)
DX: K35.32 Acute appendicitis with perforation, localized peritonitis, and gangrene, without abscess (principal); J84.9 Interstitial pulmonary disease, unspecified; Z87.891 Personal history of nicotine dependence; E66.9 Obesity, unspecified; Z68.31 Body mass index [BMI] 31.0-31.9, adult
CPT/HCPCS: 36415; 74177; 80048; 80053; 81001; 83690; 85025; 85027; 88304; 96361; 96365; 96375; 99285; A9270; J0131; J1100; J1650; J2370; J2405; J2543; J2704; J2710; J3010; J7030; J7120; Q9967

== ENCOUNTER 2020-01-09 11:24 | Outpatient (CLI) | payer MEDICARE, OTHER, SELFPAY ==
--- NOTE | ~2020-01-09 | XR_ITS ---
XR abdomen obstructive series 01/09/2020 12:04 Indication: Acute appendicitis with perforation Procedure: Supine and upright views of abdomen Comparison: No prior studies for comparison. Findings: Nonobstructive bowel gas pattern. No abnormal calcifications. There is left basilar airspac e disease. There is moderate lumbar spondylosis with levoscoliosis. Impression: 1: No acute abdominal abnormality. 2: Left basilar airspace disease, atelectasis versus pneumonia. Recommend correlation with chest x-r ay. Reviewed, dictated and finalized at location A. Impression: 1: No acute abdominal abnormality. 2: Left basilar airspace disease, atelectasis versus pneumonia. Recommend rodney elation with chest x-ray.
[2020-01-09 12:24] LABS: Basophils Percent Auto 0.6 % (0.2-1.2); Eosinophils Absolute Auto 0.2 K/mm3 (0-0.3); Eosinophils Percent Auto 2.2 % (0-4.4); Hematocrit 43.9 % (42.0-52.0); Hemoglobin 14.2 g/dL (14.0-18.0); Immature Granulocyte Absolute 0.02 K/mm3 (0.00-0.031); Immature Granulocyte Percent A 0.3 % (0-0.5); Lymphocytes Absolute Auto 2.11 K/mm3 (0.9-3.2); Mean Corpuscular HGB Conc 32.3 g/dl (32-36); Mean Corpuscular Hemoglobin 30.2 pg (26-34); Mean Corpuscular Volume 93.4 fl (80-100); Mean Platelet Volume 10.7 fl (7.4-10.4); Monocytes Absolute Auto 0.5 K/mm3 (0.1-0.6); Monocytes Percent Auto 7.4 % (2.6-8.5); Neutrophils Percent Auto 58.5 % (45.5-73.1); Platelet Count Result 215 k/mm3 (150-375); Red Cell Distribution Width 13.2 % (11.5-14.5); White Blood Count 6.8 K/mm3 (4.5-10.0)
[2020-01-09 12:36] LABS: Blood Urea Nitrogen 15 mg/dL (9-20); Calcium 9.1 mg/dL (8.4-10.2); Carbon Dioxide 27 mmol/L (22-30); Chloride 107 mmol/L (98-107); Estimated Glomerular Filt Rate 50; Glucose 99 mg/dL (75-110); Potassium 4.5 mmol/L (3.4-5.0); Sodium 139 mmol/L (137-145)
== END 2020-01-09 11:25 | disposition home or self-care (01) ==
PROVIDERS: PCP Family Medicine; Visit Provider Surgery
DX: N17.9 Acute kidney failure, unspecified (principal); N18.9 Chronic kidney disease, unspecified; K35.32 Acute appendicitis with perforation, localized peritonitis, and gangrene, without abscess; R91.8 Other nonspecific abnormal finding of lung field
CPT/HCPCS: 36415; 74019; 80048; 85025

== ENCOUNTER 2021-08-20 14:05 | Outpatient (CLI) | payer MEDICARE, OTHER, SELFPAY ==
--- NOTE | ~2021-08-20 | CT_ITS ---
EXAMINATION:CT diagnostic chest wo con DATE: 08/20/2021 14:46 INDICATION: Solitary pulmonary nodule. TECHNIQUE: Computed tomography (CT) of the chest was performed without intravenous contrast. Automate d exposure control and iterative reconstruction technique were employed. The dose-length product (DLP ) was 174.80 mGy-cm. COMPARISON: Chest CT 08/23/2019 FINDINGS: There is mild scarring at the lung apices. There is mild emphysema. There are scattered are as of peripheral septal thickening throughout the lungs with areas of peripheral honeycombing in the lower lobes and upper lobes. There is a relatively mild component of groundglass opacity associated w ith the septal thickening. These findings are consistent with chronic interstitial lung disease in a pattern of usual interstitial pneumonia (UIP). There is a 5 mm nodule in right upper lobe. There is a 6 mm nodule in right middle lobe. There is a 4 mm nodule in right upper lobe. These findings are sta ble from 08/23/2019. No pleural effusion. The heart size is normal. There are coronary artery calcifi cations. No pericardial effusion. There is a gallstone in the gallbladder, which is decompressed. The re is a 5.5 cm cyst in right kidney. There is severe cervical spondylosis and mild thoracic spondylos is. There is mild chronic anterior wedging of multiple vertebral bodies. IMPRESSION: 1. Lung-RADS category 2: Benign appearance or behavior. Continue annual screening with noncontrast lo w-dose chest CT in 12 months. 2. Combination of mild emphysema and chronic interstitial lung disease in a pattern of usual intersti tial pneumonia (UIP). Reviewed, dictated and finalized at location A. IMPRESSION: 1. Lung-RADS category 2: Benign appearance or behavior. Continue annual screeni ng with noncontrast low-dose chest CT in 12 months. 2. Combination of mild emphysema and chronic interstitial lung disease in a pat tern of usual interstitial pneumonia (UIP).
== END 2021-08-20 14:06 | disposition home or self-care (01) ==
LOC: ANHIMG 14:09
PROVIDERS: PCP Family Medicine; Visit Provider Nurse Practitioner
DX: R91.1 Solitary pulmonary nodule (principal); J43.9 Emphysema, unspecified
CPT/HCPCS: 71250

== ENCOUNTER 2022-09-01 14:01 | Outpatient (CLI) | payer MEDICARE, OTHER, SELFPAY ==
--- NOTE | ~2022-09-01 | CT_ITS ---
EXAMINATION:CT diagnostic chest wo con DATE: 09/01/2022 14:28 INDICATION: Pulmonary nodule. TECHNIQUE: Computed tomography (CT) of the chest was performed without intravenous contrast. Automate d exposure control and iterative reconstruction technique were employed. The dose-length product (DLP ) was 200.77 mGy-cm. COMPARISON: Chest CT 08/20/2021 FINDINGS: The lung volumes are normal. There is mild emphysema. There is widespread peripheral septal thickening in the lungs with mild groundglass opacities. There is peripheral honeycombing in the upp er lobes and lower lobes. There is bronchiectasis in the lower lobes. There is a stable 6 mm nodule r ight middle lobe. There is a stable 4 mm nodule in right upper lobe. No pleural effusion. There is le ft atrial enlargement of the heart. There are coronary artery calcifications. No pericardial effusion . There is a gallstone in the gallbladder, which is normal in size. There is a 6.3 cm cyst in right [place]. There is severe cervical spondylosis and mild thoracic spondylosis. IMPRESSION: 1. Stable pulmonary nodules, likely benign. 2. Stable diffuse lung disease likely a combination of mild emphysema and chronic interstitial lung d isease in a pattern of usual interstitial pneumonia (UIP). Reviewed, dictated and finalized at location A. IMPRESSION: 1. Stable pulmonary nodules, likely benign. 2. Stable diffuse lung disease likely a combination of mild emphysema and chron ic interstitial lung disease in a pattern of usual interstitial pneumonia (UIP) .
== END 2022-09-01 14:02 | disposition home or self-care (01) ==
PROVIDERS: PCP Family Medicine; Visit Provider Nurse Practitioner
DX: R91.1 Solitary pulmonary nodule (principal); R91.8 Other nonspecific abnormal finding of lung field; J98.4 Other disorders of lung
CPT/HCPCS: 71250

== ENCOUNTER 2022-10-07 00:57 | Day surgery (SDC) | payer MEDICARE, OTHER, SELFPAY ==
[2022-09-29 16:01] VITALS: BMI 31.2
[2022-10-07 06:55] VITALS: BMI 30.7
[2022-10-07 06:59] VITALS: BP 111/76; PULSE 87; RESP 20; TEMP 36.3; O2SAT 97
[2022-10-07] MEDS: LACTATED RINGERS 1,000 ML 150 ML IV CONT (07:04)
--- NOTE | 2022-10-07 07:28 | WPDANESEPPF ---
Anes - Initial Pre Proc Eval Procedure: Operation Date: 10/07/22 08:00 Proposed Procedures p Screening Colonoscopy - Joe Lakhani MD Date/Time: 10/07/22 07:28 Surgeon: Joe Lakhani MD Pre Op Diagnosis: Hx of colon polyps Patient Data Age: 72 Gender: M Height: 1.83 m Weight: 102.6 kg Last Vital Signs Temp 36.3 C L 10/07/22 06:59 Pulse 87 10/07/22 06:59 Resp 20 10/07/22 06:59 BP 111/76 10/07/22 06:59 Pulse Ox 97 10/07/22 06:59 O2 Del Method Room Air 10/07/22 06:59 Allergies Allergy/AdvReac Type Severity Reaction Status Date / Time Sulfa (Sulfonamide Allergy Intermediate Unknown Verified 10/07/22 06:50 Antibiotics) piroxicam Allergy Mild PT DOESN'T Verified 10/07/22 06:50 REMEMBER Home Medications Medication Instructions Recorded Confirmed Type aspirin 81 mg chewable tablet 81 mg PO DAILY 03/30/20 09/29/22 History fluticasone propionate 50 1 spray intranasal BID PRN Allergy 08/07/21 09/29/22 History mcg/actuation nasal Symptoms spray,suspension (Flonase Allergy Relief) multivitamin 1 tablet PO DAILY 08/07/21 09/29/22 History ketoconazole 2 % shampoo 1 applic topical 2XW #120 mL 08/18/22 09/29/22 Rx sodium,potassium,mag sulfates 17.5 See Rx Instructions PO .COMPLEX 08/26/22 09/29/22 Rx gram-3.13 gram-1.6 gram oral soln #354 mL (Suprep Bowel Prep Kit) Patient hx anesthesia problems: none Family hx anesthesia problems: none Results Review: All pre-operative results and documents have been reviewed as part of the pre-operative evaluation. [facility] Past Medical History Medical History Acute kidney injury superimposed on chronic kidney disease Arthritis CKD (chronic kidney disease) Collar bone fracture Interstitial pulmonary disease Ruptured suppurative appendicitis Staph infection Surgical History Surgical History H/O basal cell carcinoma excision left arm, nose H/O vasectomy History of laparoscopic appendectomy Family History Family History Mother Depression, Onset Age: 84 Hypertension Patient's mother is Family history of dementia Father Patient's father is Malignant neoplasm of prostate Family history of lymphoma Family history of malignant neoplasm of urinary bladder Grandparent Family history of cardiovascular disease Carcinoma of colon Other Family history of malignant neoplasm of ovary Social History Social History Smoking packs per day: 1 Smoking cigarettes per day: 20.0 Years smoked: 50 Smoking pack-years: 50.00 Smoking status: Former smoker Tobacco type: cigarettes Second hand tobacco smoke exposure: Yes Smoking end date: 11/02/09 Alcohol intake: current Substance use: never Substance use type: does not use Living arrangements: with family Gender identity (if verbalized by the patient): Male Spiritual care concerns: No Agree to blood products: Yes Anes - Eval Final PreProcedure Day of Procedure 10/07/22 07:28 Patient weight: obese Heart: regular rate and rhythm Lungs: clear to auscultation Airway: Mallampati scale class II Neurological: alert and oriented Last oral intake: >/= 8 hours ASA classification: III Emergent: no Anesthetic plan: proceed Anesthesia type and monitoring: general GIVS and standard monitoring Results Review: All pre-operative results and documents have been reviewed as part of the pre-operative evaluation. Informed Consent: The patient's anesthetic plan and its attendant risks and benefits were discussed with the patient/family/POA. Questions were solicited and answers provided to the satisfaction of the patient/family/POA.
--- NOTE | 2022-10-07 08:00 | PM.HPGS ---
History of Present Illness History of Present Illness Consent: Risks, benefits, and alternatives have been discussed and questions answered. Patient agrees to proceed with procedure. Chief complaint: Hx of colon polyps Narrative: Timothy Lindsay is a 72 year old male Presents for screening colonoscopy. Patient's current weight appetite and bowel movements are normal. Patient does have a prior history of colon polyps. Most recent colonoscopy performed 2012. Patient states that his current weight appetite bowel movements are normally has no bleeding. Denies abdominal pain. Review of Systems Review of Systems: Review of systems noncontributory. [facility] Past Medical History Medical History Acute kidney injury superimposed on chronic kidney disease Arthritis CKD (chronic kidney disease) Collar bone fracture Interstitial pulmonary disease Ruptured suppurative appendicitis Staph infection Surgical History Surgical History H/O basal cell carcinoma excision left arm, nose H/O vasectomy History of laparoscopic appendectomy Family History Family History Mother Depression, Onset Age: 84 Hypertension Patient's mother is Family history of dementia Father Patient's father is Malignant neoplasm of prostate Family history of lymphoma Family history of malignant neoplasm of urinary bladder Grandparent Family history of cardiovascular disease Carcinoma of colon Other Family history of malignant neoplasm of ovary Social History Social History Smoking packs per day: 1 Smoking cigarettes per day: 20.0 Years smoked: 50 Smoking pack-years: 50.00 Smoking status: Former smoker Tobacco type: cigarettes Second hand tobacco smoke exposure: Yes Smoking end date: 11/02/09 Alcohol intake: current Substance use: never Substance use type: does not use Living arrangements: with family Gender identity (if verbalized by the patient): Male Spiritual care concerns: No Agree to blood products: Yes Meds Home Medications and Allergies Home Medications Medication Instructions Recorded Confirmed Type aspirin 81 mg chewable tablet 81 mg PO DAILY 03/30/20 09/29/22 History fluticasone propionate 50 1 spray intranasal BID PRN Allergy 08/07/21 09/29/22 History mcg/actuation nasal Symptoms spray,suspension (Flonase Allergy Relief) multivitamin 1 tablet PO DAILY 08/07/21 09/29/22 History ketoconazole 2 % shampoo 1 applic topical 2XW #120 mL 08/18/22 09/29/22 Rx sodium,potassium,mag sulfates 17.5 See Rx Instructions PO .COMPLEX 08/26/22 09/29/22 Rx gram-3.13 gram-1.6 gram oral soln #354 mL (Suprep Bowel Prep Kit) Allergies Allergy/AdvReac Type Severity Reaction Status Date / Time Sulfa (Sulfonamide Allergy Intermediate Unknown Verified 10/07/22 06:50 Antibiotics) piroxicam Allergy Mild PT DOESN'T Verified 10/07/22 06:50 REMEMBER Vital Signs Vital Signs - 24 hr 10/07/22 06:59 Temperature 97.3 F L Pulse Rate 87 Respiratory Rate 20 Blood Pressure 111/76 Pulse Oximetry 97 Oxygen Delivery Room Air Exam Narrative: Physical exam reveals patient to be alert. Vital signs stable. HEENT exam is unremarkable. Patient is anicteric. Lungs are clear to auscultation and percussion. Heart is without murmur or extra sounds. Abdomen bowel sounds present soft nontender with no hepatosplenomegaly. Digital external rectal exam is normal. Assessment and Plan Assessment and plan (1) History of colon polyps: Code(s): Z86.010 - Personal history of colonic polyps Status: Acute Assessment and Plan: Patient has a distant history of colon polyps. Most recent exam 2012 was unremarkable. Patient states his current we
[2022-10-07 08:28] VITALS: BP 99/76; PULSE 65; RESP 21; O2SAT 100
[2022-10-07 08:38] VITALS: BP 103/75; PULSE 64; RESP 19; O2SAT 100
[2022-10-07 08:48] VITALS: BP 100/75; PULSE 60; RESP 17; O2SAT 100
== END 2022-10-07 08:50 | disposition home or self-care (01) ==
PROVIDERS: PCP Family Medicine; Visit Provider Internal Medicine Gastroenterology
PROC: 0DJD8ZZ Inspection of Lower Intestinal Tract, Via Natural or Artificial Opening Endoscopic (ICD-10-PCS; CPT 45378; principal; 2022-10-07 08:00)
DX: Z12.11 Encounter for screening for malignant neoplasm of colon (principal); K64.8 Other hemorrhoids; Z86.010 Personal history of colon polyps; N18.9 Chronic kidney disease, unspecified; Z79.82 Long term (current) use of aspirin; Z87.891 Personal history of nicotine dependence; E66.9 Obesity, unspecified; Z68.30 Body mass index [BMI] 30.0-30.9, adult
CPT/HCPCS: G0105; J2704; J7120

== ENCOUNTER 2023-08-24 10:59 | Outpatient (CLI) | payer MEDICARE, OTHER, SELFPAY ==
[2023-08-24 20:56] LABS: LDL Cholesterol Direct 82 mg/dL
[2023-08-24 21:13] LABS: Cholesterol 169 mg/dL (0-200); HDL Direct 40 mg/dL; Triglycerides 138 mg/dL (<150)
== END 2023-08-24 11:00 | disposition home or self-care (01) ==
PROVIDERS: PCP Family Medicine; Visit Provider Nurse Practitioner Family
DX: E78.5 Hyperlipidemia, unspecified (principal); Z13.220 Encounter for screening for lipoid disorders
CPT/HCPCS: 36415; 80061

== ENCOUNTER 2024-01-22 13:16 | Emergency (ER) | payer MEDICARE, OTHER, SELFPAY ==
[2024-01-22 13:42] VITALS: BP 119/86; PULSE 83; RESP 16; TEMP 37.2; O2SAT 97
--- NOTE | 2024-01-22 13:47 | ED.URI ---
HPI - URI/Sore Throat General Chief Complaint: Upper Respiratory Infection Stated Complaint: Covid test Time Seen by Provider: 01/22/24 14:22 Source: patient and RN notes reviewed Mode of arrival: ambulatory Limitations: no limitations History of Present Illness HPI Narrative: 73-year-old male presents with concern for 3-4 day history nasal congestion, rhinorrhea, cough. Reports he felt feverish last night. He reports he has taken Mucinex. He denies known sick contacts. MD elicited complaint: cough and nasal congestion Related Data Home Medications Medication Instructions Recorded Confirmed aspirin 81 mg chewable tablet 81 mg PO DAILY 03/30/20 01/22/24 fluticasone propionate 50 1 spray intranasal BID PRN Allergy 08/07/21 01/22/24 mcg/actuation nasal Symptoms spray,suspension (Flonase Allergy Relief) multivitamin 1 tablet PO DAILY 08/07/21 01/22/24 Allergies Allergy/AdvReac Type Severity Reaction Status Date / Time Sulfa (Sulfonamide Allergy Intermediate Unknown Verified 01/22/24 13:37 Antibiotics) piroxicam Allergy Mild PT DOESN'T Verified 01/22/24 13:37 REMEMBER Review of Systems Review of Systems: CONSTITUTIONAL: Denies malaise. Reports feeling feverish EYES: Denies visual changes, redness, or discharge. ENT: Reports rhinorrhea, congestion CARDIOVASCULAR: Denies chest pain, palpitations, or edema. RESPIRATORY: Reports cough. Denies dyspnea. GASTROINTESTINAL: Denies abdominal pain, nausea, vomiting, diarrhea SKIN: Denies rash or itching. MUSCULOSKELETAL: Denies myalgia. NEUROLOGIC: Denies headache. All systems reviewed & are unremarkable except as noted in HPI and below PMFSH Past Medical History Medical History Acute kidney injury superimposed on chronic kidney disease Arthritis CKD (chronic kidney disease) Collar bone fracture Interstitial pulmonary disease Ruptured suppurative appendicitis Seasonal allergies Staph infection Surgical History Surgical History H/O basal cell carcinoma excision left arm, nose H/O vasectomy History of laparoscopic appendectomy Family History Family History Mother Depression, Onset Age: 84 Hypertension Patient's mother is Family history of dementia Father Patient's father is Malignant neoplasm of prostate Family history of lymphoma Family history of malignant neoplasm of urinary bladder Kidney failure Grandparent Family history of cardiovascular disease Carcinoma of colon Other Family history of malignant neoplasm of ovary Social History Social History Smoking packs per day: 1 Smoking cigarettes per day: 20.0 Years smoked: 50 Smoking pack-years: 50.00 Smoking status: Former smoker Tobacco type: cigarettes Second hand tobacco smoke exposure: Yes Smoking end date: 11/02/09 Alcohol intake: never Substance use: never Substance use type: does not use Lack of Transportation: No Lack of Food: Never True Current Housing: I Have Housing Concerned About Future Housing: No Difficulty Paying Gas/Electric Bills: No Difficulty Paying for Meds: No Currently Unemployed: No Education: Associate Degree Difficulty w/ Childcare or Family Care: No Living arrangements: with family Gender identity (if verbalized by the patient): Male Spiritual care concerns: No Agree to blood products: Yes Comments At time of signature, agree with nursing past medical, surgical, social and family history. There is no relevant family history pertinent to the presenting complaint Exam Narrative: GENERAL: Well-appearing, well-nourished, and in no acute distress. HEAD: Normocephalic EYES: PERRLA, conjunctivae clear ENT: Nares clear, turbinates edematous and erythematous, c
== END 2024-01-22 14:33 | disposition home or self-care (01) ==
PROVIDERS: Emergency Provider Nurse Practitioner; PCP Family Medicine
DX: J06.9 Acute upper respiratory infection, unspecified (principal); Z20.822 Contact with and (suspected) exposure to COVID-19; Z87.891 Personal history of nicotine dependence; N18.9 Chronic kidney disease, unspecified; M19.90 Unspecified osteoarthritis, unspecified site; J84.9 Interstitial pulmonary disease, unspecified; Z86.19 Personal history of other infectious and parasitic diseases; Z85.828 Personal history of other malignant neoplasm of skin
CPT/HCPCS: 87426; 87804; 99213; G0463

== ENCOUNTER 2024-10-13 08:13 | Outpatient (CLI) | payer MEDICARE, OTHER, SELFPAY ==
--- NOTE | ~2024-10-13 | CT_ITS ---
Clinical Indication: Interstitial pulmonary disease CT Scan of the Chest with Contrast: Technique: Contiguous sections were acquired throughout the chest after intravenous administration of 75 cc of Omnipaque 350. Dose reduction technique was used on this scan by utilizing automated exposu re control and iterative reconstruction technique. The dose-length product (DLP) was 429.39 mGy-cm. COMPARISON: 09/01/2022 Findings: There is no evidence of any significant mediastinal, hilar or axillary lymphadenopathy. There is no f illing defect in the pulmonary arterial tree to suggest pulmonary embolus. There is no evidence of ao rtic dissection or aneurysm. There is no evidence of pleural or pericardial effusion. Chronic interstitial pulmonary disease is present, with peripheral interstitial thickening and mild b ibasilar honeycomb formation, worst at the right lung base. Findings overall are very similar to prio r exam. Images through the upper abdomen reveal large right renal cyst, and atherosclerotic calcifications of the abdominal aorta. Calcified gallstone. Impression: Chronic interstitial pulmonary disease, as above, essentially stable from prior exam. Cholelithiasis. Reviewed, dictated and finalized at location . [facility] Impression: Chronic interstitial pulmonary disease, as above, essentially stable from prior exam. Cholelithiasis.
== END 2024-10-13 08:14 | disposition home or self-care (01) ==
PROVIDERS: PCP Family Medicine; Visit Provider Family Medicine
DX: J84.9 Interstitial pulmonary disease, unspecified (principal); K80.20 Calculus of gallbladder without cholecystitis without obstruction
CPT/HCPCS: 71260; Q9967

== ENCOUNTER 2024-11-16 07:42 | Outpatient (CLI) | payer MEDICARE, OTHER, SELFPAY ==
--- NOTE | ~2024-11-16 | NM_ITS ---
EXAMINATION: NM stress w perf spect multi DATE: 11/16/2024 11:07 INDICATION: Other forms of dyspnea TECHNIQUE: Rest images were obtained following intravenous administration of 10.3 mCi Tc99m tetrofosm in (Myoview). The patient performed an exercise activity. At peak exercise, 33.7 mCi Tc99m tetrofosmi n (Myoview) was administered intravenously, and stress images were obtained. Data was reconstructed i nto short axis and horizontal and vertical long axis SPECT images. Gated SPECT images were also obtai angella. COMPARISON: None. FINDINGS: There is normal left ventricular perfusion without definite evidence of reversible or fixed perfusion abnormality to suggest ischemia or infarction. There is normal left ventricular chamber size, wall motion and ejection fraction. Left ventricular ejection fraction measures 67%. IMPRESSION: 1. Normal myocardial perfusion at rest and during stress. 2. Left ventricular ejection fraction measuring 67%. Reviewed, dictated and finalized at location B. [employer] OPERATOR
--- NOTE | 2024-11-16 09:00 | EST_ITS ---
Patient Info Name: Timothy Lindsay Age: 74 years : 1950 Gender: Male Ht: 72 in Wt: 220 lbs BSA: 2.27 m2 HR: 63 bpm BP: 139 / 74 mmHg Heart Rhythm: Sinus Rhythm Exam Date: 11/16/2024 8:49 AM Exam Location: Echo Lab Patient Status: Outpatient Admit Date: 11/16/2024 Staff Ordering Physician: Conrad Raymundo MD Attending Provider: Conrad Raymundo MD Exercise Technologist: Eugenie Rojas CT Exercise Physician: Jose Miguel David DO Exam Type: CA stress test treadmill w NM Study Info Indications R06.09 - Other forms of dyspnea A nuclear stress test was performed. Summary 1. 1. Negative Tian exercise stress test for ischemic ST changes by ECG criteria. However, patient achieved only 83% MPHR for age group which reduces sensitivity of the test. 2. 2. Reduced functional capacity, achieving 7 METs of workload. 3. 3. Appropriate HR response to exercise. 4. 4. Appropriate HR recovery at 1 minute post exercise. 5. 5. Nuclear scan to follow and will be reported separately. Please correlate with it. 6. 6. Patient informed of the above results. Protocol: Tian Stress ECG Details Stage: REST Duration (min): 1 min : 11 sec Speed (mph): 0.0 Grade (%): 0 HR (bpm): 70 SBP (mmHg): 139 DBP (mmHg): 74 METS: --- Stage: REST Duration (min): 5 min : 48 sec Speed (mph): 0.0 Grade (%): 0 HR (bpm): 77 SBP (mmHg): 139 DBP (mmHg): 74 METS: --- Stage: STAGE 1 Duration (min): 1 min : 0 sec Speed (mph): 1.7 Grade (%): 10 HR (bpm): 89 SBP (mmHg): 139 DBP (mmHg): 74 METS: --- Stage: STAGE 1 Duration (min): 2 min : 0 sec Speed (mph): 1.7 Grade (%): 10 HR (bpm): 103 SBP (mmHg): 139 DBP (mmHg): 74 METS: --- Stage: STAGE 1 Duration (min): 3 min : 0 sec Speed (mph): 1.7 Grade (%): 10 HR (bpm): 104 SBP (mmHg): 146 DBP (mmHg): 78 METS: --- Stage: STAGE 2 Duration (min): 1 min : 0 sec Speed (mph): 2.5 Grade (%): 12 HR (bpm): 110 SBP (mmHg): 146 DBP (mmHg): 78 METS: --- Stage: STAGE 2 Duration (min): 2 min : 0 sec Speed (mph): 2.5 Grade (%): 12 HR (bpm): 115 SBP (mmHg): 150 DBP (mmHg): 76 METS: --- Stage: STAGE 2 Duration (min): 3 min : 0 sec Speed (mph): 2.5 Grade (%): 12 HR (bpm): 119 SBP (mmHg): 150 DBP (mmHg): 76 METS: --- Stage: STAGE 3 Duration (min): 0 min : 11 sec Speed (mph): 3.4 Grade (%): 14 HR (bpm): 119 SBP (mmHg): 150 DBP (mmHg): 76 METS: --- Stage: RECOVERY Duration (min): 0 min : 48 sec Speed (mph): 0.0 Grade (%): 0 HR (bpm): 114 SBP (mmHg): 172 DBP (mmHg): 71 METS: --- Stage: RECOVERY Duration (min): 1 min : 48 sec Speed (mph): 0.0 Grade (%): 0 HR (bpm): 99 SBP (mmHg): 172 DBP (mmHg): 71 METS: --- Stage: RECOVERY Duration (min): 2 min : 48 sec Speed (mph): 0.0 Grade (%): 0 HR (bpm): 87 SBP (mmHg): 172 DBP (mmHg): 71 METS: --- Stage: RECOVERY Duration (min): 3 min : 17 sec Speed (mph): 0.0 Grade (%): 0 HR (bpm): 85 SBP (mmHg): 150 DBP (mmHg): 69 METS: --- Rest HR: 77 bpm Peak HR: 120 bpm Rest Sys BP: 139 mmHg Peak Sys BP: 172 mmHg Max Pred HR: 144 bpm % Max Pred HR: 83 % Target HR: 122 bpm Max RPP: 20,640 bpm*mmHg Calabrese Score: 0 Termination Reason: Reached target heart rate or workload Cardiac Symptoms: Shortness of breath Max ST Seg Deviation: -1 mm Total Time: 6 min : 11 sec Rest Rodrigez BP: 74 mmHg Peak Rodrigez BP: 71 mmHg Angina Score: None Total METS: 7.4 Resting ECG Sinus rhythm, consider inferior infarct, age indeterminate. Stress ECG No ST changes. Arrhythmias None. Report Signatures
--- NOTE | 2024-11-20 22:38 | P.PCNPFT_ITS ---
PFT Procedure Performed PFT Procedure Performed Spirometry with Pre/Post Bronchodilator Plethysmography (Lung Vol) Diffusing Cap (DLCO) PFT Interpretation DOS: 11/16/2024 REQUESTING: Conrad Raymundo MD REASON FOR TESTING: Dyspnea PULMONARY FUNCTION TESTS Results are reliable and reproducible. Repeatability of spirometry FEV1 maneuver pre and post bronchodilator is Grade A. Negro: GLI 2012 reference equations were used. Spirometry: The pre-bronchodilator FEV1 is 2.74 L 86%, normal. The pre- bronchodilator FVC is 3.50 L, 81%, normal. The FEV1/FVC ratio is 78%, normal. After bronchodilator, the FEV1 is 2.75 L, 86%, no change. After bronchodilator, the FVC is 3.28 L, 76%, -6%. The FEV1/FVC ratio is 84%. Lung volumes: The total lung capacity is 5.79 L, 78%, mildly reduced. The residual volume is 2.30 L, 86%, normal. The RV/TLC is 40%, normal. Airway resistance is increased. Diffusion: DLCO is 18.2, 71%. The DLCO/VA is 3.71, 102%. These are normal values Flow volume loop: The flow volume loop shows an abnormal inspiratory limb which is not diagnostic of any specific condition. IMPRESSION: Normal spirometry without response to bronchodilator, mild restrictive pattern with decrease in total lung capacity, normal diffusion. No prior studies to compare. Tika Pope MD
== END 2024-11-16 07:43 | disposition home or self-care (01) ==
PROVIDERS: PCP Family Medicine; Visit Provider Family Medicine
DX: R06.09 Other forms of dyspnea (principal); J84.9 Interstitial pulmonary disease, unspecified
CPT/HCPCS: 78452; 93017; 94060; 94726; 94729; A9502

== ENCOUNTER 2024-11-28 10:52 | Outpatient (CLI) | payer MEDICARE, OTHER, SELFPAY ==
--- OUTSIDE RECORDS SUMMARY | 2024-11-28 11:59 | XMS_ITS | Referral Summary ---
Author Organization [facility] Address [address] [place] [place] [address] Care Team Providers Care Cattle Sorter Name Role Phone Unavailable Primary Care Provider Unavailabl e Source Comments [facility],non-owned Affiliates and Associated Physician Practices is amultiple site organization consisting of ambulatory clinics and hospital sitesin [place], [place], [place] and [place]. This disclosure is being madepursuant to the Care Everywhere program and may not contain all information available regarding this patient. Last updated 18.[facility] Encounters Date Type Department Care Team Description 10/18/2024 Lab Requisition [facility] - DermPath Lab [address] [place] [id number] Theresa Torrez APRN-CHRISTINE Neoplasm of uncertain behavior of skin from Last 3 Months Social History Tobacco Use Types Packs/Day Years Used Date Smoking Tobacco: Never Assessed Sex and Gender Information Value Date Recorded Sex Assigned at Not on file Gender Identity Not on file Sexual Orientation Not on file Plan of Treatment Not on file Procedures Procedure Name Priority Date/Time Associated Diagnosis Comments DERMATOPATHOLOGY Routine 10/18/2024 12:0 0 AM CLIENT PROFESSIONAL Neoplasm of uncertain behavior of skin from Last 3 Months Results * DERMATOPATHOLOGY (10/18/2024 12:00 AM CLIENT PROFESSIONAL) Case Report Dermatopathology Report ? Case: [id number] ? Authorizing Provider: ??Theresa Torrez, ? Collected: ? 10/18/2024 12:00 AM ? HVAC DESIGN MECHANICAL ENGINEER-REMEDY DEVELOPER ? Ordering Location: ? [facility] - ??Received: ?10/19/2024 11:53 AM ? DermPath Lab ? Pathologist: ? Viridiana Leavitt MD ? Specimen: ?Skin, right frontal scalp ? 4 3:37 PM [facility] Final Diagnosis Specimen A. SKIN, right frontal scalp: HYPERPLASTIC (HYPERTROPHIC) ACTINIC KERATOSIS, INFLAMED (L57.0) EPIDERMAL NECROSIS SUGGESTIVE OF EXCORIATION (L98.499) 4 3:37 PM [facility] Clinical History Basal Cell Carcinoma 4 3:37 PM [facility] Gross Description Specimen A: Received is one formalin filled container labeled with the patient's name and designated right frontal scalp. The specimen consists of a shave biopsy measuring 7x5x1 mm. Jar 0. 4 3:37 PM [facility] Microscopic Description Specimen A. SKIN, right frontal scalp: There is hyperkeratosis alternating with parakeratosis. There is epidermal hyperplasia with disorderly maturation of keratinocytes with nuclear pleomorphism confined to the lower half of the epidermis. There is a lymphohistiocytic infiltrate within the dermis. The epidermis is focally necrotic and covered with a scale-crust. There is fibrin at the base. 4 3:37 PM [facility] Disclaimer An external and internal positive and negative controls are appropriate for the histochemical, immunohistochemical and immunofluorescence stain(s) in this case (if any), except where stated explicitly. The performance characteristics of the stain(s) cited in this report were developed and its performance characteristic determined by the Dermatopathology Laboratory at [facility], directed by Dr. Neptali Rivera. These tests need not be, and therefore are not, approved by the [place] Food and Drug Administration. The tests are used for clinical purposes. Billing Codes Specimen Charges Stain Charges 36840 1 4 3:37 PM [facility] Embedded Images 4 3:37 PM [facility] Pathology/Cytolog y TISSUE SPECIMEN FROM SKIN / Unknown 10/18/2024 10/19/2024 11:53 AM CLIENT PROFESSIONAL Theresa Torrez HVAC DESIGN MECHANICAL ENGINEER-REMEDY DEVELOPER LAB - PATH OLOGY/CYTOLOGY ORDERABLES DERMATOPATHOLOGY LABORATORY [facility] - Department of Dermatology [facility] [address] [place] [address], [address] [phone] from Last 3 Months Timothy Lindsay Personal/Family Self 1950 [place] [address]
--- OUTSIDE RECORDS SUMMARY | 2024-11-28 11:59 | XMS_ITS | Clinical Summary ---
Author Organization [facility] utiricardo Address [address] [place] [phone] Phone Care Team Providers Care Area Coordinator Name Role Phone Fabby Raymundo MD Primary Care Provider Allergies Active Allergy Reactions Criticality Noted Date Comments Piroxicam Low 10/16/2011 Sulfa Antibiotics 10/31/2019 Medications Medication Sig Dispensed Refills Start Date End Date Status cetirizine (ZyrTEC) 10 MG tablet TK 1 T PO D 09/28/2019 Active cholecalciferol (VITAMIN D-3) 50 MCG (1999 UT) capsule Take 2,000 Units by mouth 1 (one) time each day Active Active Problems Problem Noted Date Diagnosed Date Interstitial pulmonary disease 03/19/2020 Mixed hyperlipidemia 12/05/2019 Stage 3b chronic kidney disease 10/27/2019 Immunizations Name Administration Dates Next Due Influenza TIV (IM) 02/06/2021(Deferred: Patient Refused),10/31/2019(Deferred: Patient Refused) Pfizer Sars-cov-2 Vaccination 01/23/2021, 021 Tdap 05/10/2012 Family History Medical History Relation Comments Prostate cancer Father Kidney disease Neg Hx Relation Status Comments Father Social History Tobacco Use Types Packs/Day Years Used Date Smoking Tobacco: Former Smokeless Tobacco: Never Alcohol Use Standard Drinks/Week Comments Yes 0 (1 standard drink = 0.6 oz pur e alcohol) rare Sex and Gender Information Value Date Recorded Sex Assigned at Male 05/20/2022 3:08 PM MDT Gender Identity Male 05/20/2022 3:08 PM MDT Sexual Orientation Not on file Last Filed Vital Signs Vital Sign Reading Time Taken Comments Blood Pressure 122/52 05/22/2022 10:30 AM CDT Pulse 72 05/22/2022 10:30 AM CDT Temperature 36.7 ??C (98.1 ??F) 05/22/2022 10:30 AM C DT Respiratory Rate - - Oxygen Saturation - - Inhaled Oxygen Concentration - - Weight 106 kg (234 lb) 05/22/2022 10:30 AM CDT Height 182.9 cm (6') 05/22/2022 10:30 AM CDT Body Mass Index 31.74 05/22/2022 10:30 AM CDT Plan of Treatment Health Maintenance Due Date Last Done Comments Pneumococcal PPSV23/PCV13 65 + Years / High and Highest Risk (1 of 4 - PCV) 1956 COVID-19 Vaccine (3 - 2022- season) 2024, 01/01/2021 Influenza Vaccine (#1) 2024 Care Teams Area Coordinator Relationship Specialty Start Date End Date Fabby Raymundo MD [address] [place] [address] PCP - General Internal Medicine 02/06/21
--- OUTSIDE RECORDS SUMMARY | 2024-11-28 11:59 | XMS_ITS | Clinical Summary ---
Author Organization [facility] Care Team Providers Care Daycare Worker Name Role Phone Unavailable Primary Care Provider Unavailabl e Social History Tobacco Use Types Packs/Day Years Used Date Smoking Tobacco: Never Assessed Sex and Gender Information Value Date Recorded Sex Assigned at Not on file Legal Sex Male 10:47 PM CDT Gender Identity Not on file Sexual Orientation Not on file Plan of Treatment Health Maintenance Due Date Last Done Comments Hepatitis C Virus (HCV) Screening 1950 TdaP Immunization 1950 Pneumococcal Immunization (5 0+ years) (1 of 1 - PCV) 1998 Zoster Immunization (1 of 2) 1998 Hepatitis B Immunization (2 of 3 - 19+ 3-dose series) 02/16/2019 01/19/2019 Respiratory Syncytial Virus (RSV) Immunization (Adult) (1 - 1-dose 75+ series) 2023 Influenza Immunization (#1) 2024 SARS-COV-2 Immunization (3 - season) 2024 01/23/2021, 01/01/2021 Meningococcal Immunization (ACWY) Aged Out No longer eligible b ased on patient's age to complete this topic Rotavirus Immunization Aged Out No lo nger eligible based on patient's age to complete this topic
--- OUTSIDE RECORDS SUMMARY | 2024-11-28 11:59 | XMS_ITS | Encounter Summary ---
Author Organization [facility] Address [address] [place] [address] Care Team Providers Care Telesales Professional Name Role Phone Unavailable Primary Care Provider Unavailabl e Encounter Details Date Type Department Care Team (Late st Contact Info) Description 10/18/2024 Lab Requisition [facility] - DermPath Lab [address] [place] [address] Theresa Torrez APRN-CHRISTINE [facility] DERMATOLOGY [address] [place] [phone] Neoplasm of uncertain behavior of skin Social History Tobacco Use Types Packs/Day Years Used Date Smoking Tobacco: Never Assessed Sex and Gender Information Value Date Recorded Sex Assigned at Not on file Gender Identity Not on file Sexual Orientation Not on file documented as of this encounter Plan of Treatment Not on file documented as of this encounter Procedures Procedure Name Priority Date/Time Associated Diagnosis Comments DERMATOPATHOLOGY Routine 10/18/2024 12:0 0 AM KNITTING MACHINE FIXER HEAD Neoplasm of uncertain behavior of skin documented in this encounter Results * DERMATOPATHOLOGY (10/18/2024 12:00 AM KNITTING MACHINE FIXER HEAD) Case Report Dermatopathology Report ? Case: [id number] ? Authorizing Provider: ??Theresa Torrez, ? Collected: ? 10/18/2024 12:00 AM ? SAP BODS DEVELOPER-BENDING MACHINE OPERATOR ? Ordering Location: ? [facility] - ??Received: ?10/19/2024 11:53 AM ? DermPath Lab ? Pathologist: ? Viridiana Leavitt MD ? Specimen: ?Skin, right frontal scalp ? 4 3:37 PM [facility] DERMATOPATHOLOGY LABORATORY Final Diagnosis Specimen A. SKIN, right frontal scalp: HYPERPLASTIC (HYPERTROPHIC) ACTINIC KERATOSIS, INFLAMED (L57.0) EPIDERMAL NECROSIS SUGGESTIVE OF EXCORIATION (L98.499) 4 3:37 PM [facility] DERMATOPATHOLOGY LABORATORY Clinical History Basal Cell Carcinoma 4 3:37 PM [facility] DERMATOPATHOLOGY LABORATORY Gross Description Specimen A: Received is one formalin filled container labeled with the patient's name and designated right frontal scalp. The specimen consists of a shave biopsy measuring 7x5x1 mm. Jar 0. 4 3:37 PM [facility] DERMATOPATHOLOGY LABORATORY Microscopic Description Specimen A. [...] fibrin at the base. 4 3:37 PM [facility] DERMATOPATHOLOGY LABORATORY Disclaimer An external and internal positive and negative controls are appropriate for the histochemical, immunohistochemical and immunofluorescence stain(s) in this case (if any), except where stated explicitly. The performance characteristics of the stain(s) cited in this report were developed and its performance characteristic determined by the Dermatopathology Laboratory at [facility], directed by Dr. Neptali Rivera. These tests need not be, and therefore are not, approved by the [place] Food and Drug Administration. The tests are used for clinical purposes. Billing Codes Specimen Charges Stain Charges 89769 1 4 3:37 PM [facility] DERMATOPATHOLOGY LABORATORY Embedded Images 4 3:37 PM [facility] DERMATOPATHOLOGY LABORATORY Pathology/Cytolog y TISSUE SPECIMEN FROM SKIN / Unknown 10/18/2024 10/19/2024 11:53 AM KNITTING MACHINE FIXER HEAD Theresa Torrez APRN-BENDING MACHINE OPERATOR LAB - PATH OLOGY/CYTOLOGY ORDERABLES DERMATOPATHOLOGY LABORATORY [facility] - Department of Dermatology [address], [address] [phone] documented in this encounter Visit Diagnoses Diagnosis Neoplasm of uncertain behavior of skin documented in this encounter
--- OUTSIDE RECORDS SUMMARY | 2024-11-28 11:59 | XMS_ITS | Clinical Summary ---
Author Organization [facility] Address [address] [place] [address] Care Team Providers Care Operations Expert Name Role Phone Unavailable Primary Care Provider Unavailabl e Source Comments [facility],non-owned Affiliates and Associated Physician Practices is amultiple site organization consisting of ambulatory clinics and hospital sitesin [place], [place], [place] and [place]. This disclosure is being madepursuant to the Care Everywhere program and may not contain all information available regarding this patient. Last updated 18.[facility] Encounters Date Type Department Care Team Description 10/18/2024 Lab Requisition [facility] - DermPath Lab [address] [place] [id number] Theresa Torrez APRN-CHRISTINE Neoplasm of uncertain behavior of skin from Last 3 Months Social History Tobacco Use Types Packs/Day Years Used Date Smoking Tobacco: Never Assessed Sex and Gender Information Value Date Recorded Sex Assigned at Not on file Gender Identity Not on file Sexual Orientation Not on file Plan of Treatment Health Maintenance Due Date Last Done Comments MEDICARE AWV ? 12 MONTHS 1950 HEPATITIS C SCREENING 03/28/1966 DTAP/TDAP/TD VACCINES (1 - Tdap) 1967 PNEUMOCOCCAL VACCINE 50+ (1 of 1 - PCV) 1998 ZOSTER VACCINE (1 of 2) 1998 Respiratory Syncytial Virus (RSV) Vaccine Pt: or over 60 yrs (1 - 1-dose 75+ series) 2023 COVID-19 VACCINE ( - 2023-2 5 season) 2024 INFLUENZA VACCINE (#1) 2024 DEPRESSION SCREENING 11/02/2024 HEPATITIS B VACCINE Aged Out No longe r eligible based on patient's age to complete this topic HIB VACCINE Aged Out No longer eligi ble based on patient's age to complete this topic HPV VACCINE Aged Out No longer eligi ble based on patient's age to complete this topic MENINGOCOCCAL (Group B) VACCINE Aged Out No longer eligible based on patient's age to complete this topic MENINGOCOCCAL VACCINE Aged Out No brittany areli eligible based on patient's age to complete this topic Procedures Procedure Name Priority Date/Time Associated Diagnosis Comments DERMATOPATHOLOGY Routine 10/18/2024 12:0 0 AM GRAIN GRADER Neoplasm of uncertain behavior of skin from Last 3 Months Results * DERMATOPATHOLOGY (10/18/2024 12:00 AM GRAIN GRADER) Case Report Dermatopathology Report ? Case: [id number] ? Authorizing Provider: ??Theresa Torrez, ? Collected: ? 10/18/2024 12:00 AM ? BULL RIVETER-AUTOMOTIVE COLLISION ESTIMATOR ? Ordering Location: ? [facility] - ??Received: ?10/19/2024 11:53 AM ? DermPath Lab ? Pathologist: ? Viridiana Leavitt MD ? Specimen: ?Skin, right frontal scalp ? 4 3:37 PM [facility] DERMATOPATHOLOGY LABORATORY Final Diagnosis Specimen A. SKIN, right frontal scalp: HYPERPLASTIC (HYPERTROPHIC) ACTINIC KERATOSIS, INFLAMED (L57.0) EPIDERMAL NECROSIS SUGGESTIVE OF EXCORIATION (L98.499) 4 3:37 PM [facility] DERMATOPATHOLOGY LABORATORY Clinical History Basal Cell Carcinoma 4 3:37 PM [facility] DERMATOPATHOLOGY LABORATORY Gross Description Specimen A: Received is one formalin filled container labeled with the patient's name and designated right frontal scalp. The specimen consists of a shave biopsy measuring 7x5x1 mm. Jar 0. 4 3:37 PM [facility] DERMATOPATHOLOGY LABORATORY Microscopic Description Specimen A. SKIN, right frontal scalp: There is hyperkeratosis alternating with parakeratosis. There is epidermal hyperplasia with disorderly maturation of keratinocytes with nuclear pleomorphism confined to the lower half of the epidermis. There is a lymphohistiocytic infiltrate within the dermis. The epidermis is focally necrotic and covered with a scale-crust. There is fibrin at the base. 4 3:37 PM [facility] DERMATOPATHOLOGY LABORATORY Disclaimer An external and internal positive and negative controls are appropriate for the histochemical, immunohistochemical and immunofluorescence stain(s) in this case (if any), except where stated explicitly. The performance characteristics of the stain(s) cited in this report were developed and its performance characteristic determined by the Dermatopathology Laboratory at [facility], directed by Dr. Neptali Rivera. These tests need not be, and therefore are not, approved by the [place] Food and Drug Administration. The tests are used for clinical purposes. Billing Codes Specimen Charges Stain Charges 33908 1 4 3:37 PM GRAIN GRADER DERMATOPATHOLOGY LABORATORY Embedded Images 3:37 PM GRAIN GRADER DERMATOPATHOLOGY LABORATORY Pathology/Cytolog y TISSUE SPECIMEN FROM SKIN / Unknown 10/18/2024 10/19/2024 11:53 AM GRAIN GRADER Theresa Torrez BULL RIVETER-AUTOMOTIVE COLLISION ESTIMATOR LAB - PATH OLOGY/CYTOLOGY ORDERABLES DERMATOPATHOLOGY LABORATORY [facility] - Department of Dermatology [address] [phone] from Last 3 Months Timothy Lindsay Personal/Family Self [address] [place] [address]
--- OUTSIDE RECORDS SUMMARY | 2024-11-28 11:59 | XMS_ITS | Patient Health Summary ---
Author Organization [facility] Address [address] [place] [address] Care Team Providers Care Insurance Rater Name Role Phone Unavailable Primary Care Provider Unavailabl e Note from [facility],non-owned Affiliates and Associated Physician Practices is amultiple site organization consisting of ambulatory clinics and hospital sitesin [place], [place], [place] and [place]. This disclosure is being madepursuant to the Care Everywhere program and may not contain all information available regarding this patient. Last updated 18.[facility] Social History Tobacco Use Types Packs/Day Years Used Date Smoking Tobacco: Never Assessed Sex and Gender Information Value Date Recorded Sex Assigned at Not on file Gender Identity Not on file Sexual Orientation Not on file Procedures * DERMATOPATHOLOGY(Performed 10/18/2024) Performed for Neoplasm of uncertain behavior of skin Results * DERMATOPATHOLOGY (10/18/2024 12:00 AM FIBERLINE SUPERVISOR) Case Report Dermatopathology Report ? Case: [id number] ? Authorizing Provider: ??Theresa Torrez, ? Collected: ? 10/18/2024 12:00 AM ? LEGAL RECRUITER-CLINICAL INFORMATICS EDUCATOR ? Ordering Location: ? [facility] - ??Received: ?10/19/2024 11:53 AM ? DermPath Lab ? Pathologist: ? Viridiana Leavitt MD ? Specimen: ?Skin, right frontal scalp ? 4 3:37 PM [facility] DERMATOPATHOLOGY LABORATORY Final Diagnosis Specimen A. SKIN, right frontal scalp: HYPERPLASTIC (HYPERTROPHIC) ACTINIC KERATOSIS, INFLAMED (L57.0) EPIDERMAL NECROSIS SUGGESTIVE OF EXCORIATION (L98.499) 4 3:37 PM [facility] DERMATOPATHOLOGY LABORATORY Clinical History Basal Cell Carcinoma 4 3:37 PM [facility] DERMATOPATHOLOGY LABORATORY Gross Description Specimen A: Received is one formalin filled container labeled with the patient's name and designated right frontal scalp. The specimen consists of a shave biopsy measuring 7x5x1 mm. Jar 0. 4 3:37 PM [facility] DERMATOPATHOLOGY LABORATORY Microscopic Description Specimen A. [...] fibrin at the base. 4 3:37 PM [facility] DERMATOPATHOLOGY LABORATORY Disclaimer An external and internal positive and negative controls are appropriate for the histochemical, immunohistochemical and immunofluorescence stain(s) in this case (if any), except where stated explicitly. The performance characteristics of the stain(s) cited in this report were developed and its performance characteristic determined by the Dermatopathology Laboratory at [facility], directed by Dr. Neptali Rivera. These tests need not be, and therefore are not, approved by the [place] Food and Drug Administration. The tests are used for clinical purposes. Billing Codes Specimen Charges Stain Charges 07300 1 4 3:37 PM [facility] DERMATOPATHOLOGY LABORATORY Embedded Images 4 3:37 PM [facility] DERMATOPATHOLOGY LABORATORY Pathology/Cytolog y TISSUE SPECIMEN FROM SKIN / Unknown 10/18/2024 10/19/2024 11:53 AM FIBERLINE SUPERVISOR Theresa Torrez APRN-CLINICAL INFORMATICS EDUCATOR LAB - PATH OLOGY/CYTOLOGY ORDERABLES DERMATOPATHOLOGY LABORATORY [facility] - Department of Dermatology [address], [address] [phone]
[2024-11-28 12:00] LABS: CRP < 0.5 mg/dL (<1.0); Creatine Kinase 55 U/L (55-170); Rheumatoid Factor < 12.0 IU/ML (<12)
[2024-11-28 12:13] LABS: Erythrocyte Sedimentation Rate 22 mm/hr (0-20)
[2024-11-29 16:43] LABS: ANA Cascade Screen NEGATIVE (NEGATIVE)
[2024-12-02 15:47] LABS: ANCA Screen NEGATIVE (NEGATIVE)
== END 2024-11-28 10:53 | disposition home or self-care (01) ==
PROVIDERS: PCP Family Medicine; Visit Provider Internal Medicine Pulmonary Disease
DX: J84.9 Interstitial pulmonary disease, unspecified (principal); J98.4 Other disorders of lung; R91.1 Solitary pulmonary nodule
CPT/HCPCS: 36415; 82085; 82550; 85652; 86036; 86038; 86140; 86200; 86225; 86235; 86364; 86430

== ENCOUNTER 2024-12-08 12:44 | Outpatient (CLI) | payer MEDICARE, OTHER, SELFPAY ==
--- OUTSIDE RECORDS SUMMARY | 2024-12-08 12:48 | XMS_ITS | Encounter Summary ---
Author Organization [facility] Address [address] [place] [address] Care Team Providers Care Fisher Diver Net Name Role Phone Unavailable Primary Care Provider Unavailabl e Encounter Details Date Type Department Care Team (Late st Contact Info) Description 10/18/2024 Lab Requisition [facility] - DermPath Lab [address] [place] [id number] Theresa Torrez APRN-CNP [facility] DERMATOLOGY [address] [place] [phone] Neoplasm of uncertain behavior of skin [...] Comments DERMATOPATHOLOGY Routine 10/18/2024 12:0 0 AM MOTOR CHECKER Neoplasm of uncertain behavior of skin documented in this encounter Results * DERMATOPATHOLOGY (10/18/2024 12:00 AM MOTOR CHECKER) Case Report Dermatopathology Report Case: [id number] Authorizing Provider: Theresa Torrez, Collected: 10/18/2024 12:00 AM AFLOAT CRYPTOLOGIC MANAGER-MACHINE SETTER SHEET METAL Ordering Location: [facility] - Received: 10/19/2024 11:53 AM DermPath Lab Pathologist: Viridiana Leavitt MD Specimen: Skin, right frontal scalp 4 3:37 PM MOTOR CHECKER DERMATOPATHOLOGY LABORATORY Final Diagnosis Specimen A. SKIN, right frontal scalp: HYPERPLASTIC (HYPERTROPHIC) ACTINIC KERATOSIS, INFLAMED (L57.0) EPIDERMAL NECROSIS SUGGESTIVE OF EXCORIATION (L98.499) 4 3:37 PM [facility] DERMATOPATHOLOGY LABORATORY Clinical History Basal Cell Carcinoma 4 3:37 PM [facility] DERMATOPATHOLOGY LABORATORY Gross Description Specimen A: Received is one formalin filled container labeled with the patient's name and designated right frontal scalp. The specimen consists of a shave biopsy measuring 7x5x1 mm. Jar 0. 3:37 PM [facility] DERMATOPATHOLOGY LABORATORY Microscopic Description Specimen A. SKIN, right frontal scalp: There is hyperkeratosis alternating with parakeratosis. There is epidermal hyperplasia with disorderly maturation of keratinocytes with nuclear pleomorphism confined to the lower half of the epidermis. There is a lymphohistiocytic infiltrate within the dermis. The epidermis is focally necrotic and covered with a scale-crust. There is fibrin at the base. 3:37 PM [facility] DERMATOPATHOLOGY LABORATORY Disclaimer An external and internal positive and negative controls are appropriate for the histochemical, immunohistochemical and immunofluorescence stain(s) in this case (if any), except where stated explicitly. The performance characteristics of the stain(s) cited in this report were developed and its performance characteristic determined by the Dermatopathology Laboratory at [facility], directed by Dr. Neptali Rivera. These tests need not be, and therefore are not, approved by the [place] Food and Drug Administration. The tests are used for clinical purposes. Billing Codes Specimen Charges Stain Charges 49141 1 3:37 PM [facility] DERMATOPATHOLOGY LABORATORY Embedded Images 3:37 PM [facility] DERMATOPATHOLOGY LABORATORY Pathology/Cytolog y TISSUE SPECIMEN FROM SKIN / Unknown 10/18/2024 10/19/2024 11:53 AM MOTOR CHECKER Theresa Torrez AFLOAT CRYPTOLOGIC MANAGER-MACHINE SETTER SHEET METAL LAB - PATH OLOGY/CYTOLOGY ORDERABLES DERMATOPATHOLOGY LABORATORY [facility] - Department of Dermatology [address] [place] [address], [facility] [phone] documented in this encounter Visit Diagnoses Diagnosis Neoplasm of uncertain behavior of skin documented in this encounter
--- OUTSIDE RECORDS SUMMARY | 2024-12-08 12:48 | XMS_ITS | Clinical Summary ---
Author Organization [facility] Care Team Providers Care Rn Pool Name Role Phone Unavailable Primary Care Provider [...] 2023 Influenza Immunization (#1) 2024 SARS-COV-2 Immunization ( - season) 2024 01/23/2021, 01/01/2021 Meningococcal Immunization (ACWY) Aged Out No longer eligible b ased on patient's age to complete this topic Rotavirus Immunization Aged Out No lo nger eligible based on patient's age to complete this topic
--- OUTSIDE RECORDS SUMMARY | 2024-12-08 12:48 | XMS_ITS | Patient Health Summary ---
Author Organization [facility] Address [address] [place] [address] Care Team Providers Care Hospital Aides And Assistants Teacher Name Role Phone Unavailable Primary Care Provider Unavailabl e Note from [facility],non-owned Affiliates and Associated Physician Practices is amultiple site organization consisting of ambulatory clinics and hospital sitesin [place], [place], [place] and [place]. This disclosure is being madepursuant to the Care Everywhere program and may not contain all information available regarding this patient. Last updated 18.[facility] Social History Tobacco Use Types Packs/Day Years Used Date Smoking Tobacco: Never Assessed Sex and Gender Information Value Date Recorded Sex Assigned at Not on file Gender Identity Not on file Sexual Orientation Not on file Procedures * DERMATOPATHOLOGY(Performed 10/18/2024) Performed for Neoplasm of uncertain behavior of skin Results * DERMATOPATHOLOGY (10/18/2024 12:00 AM NEGATIVE RETOUCHER) Case Report Dermatopathology Report Case: [id number] Authorizing Provider: Theresa Torrez, Collected: 10/18/2024 12:00 AM CRYOGENICS REPAIRER-MICROSOFT INFRASTRUCTURE CONSULTANT Ordering Location: [facility] - Received: 10/19/2024 11:53 AM DermPath Lab Pathologist: Viridiana Leavitt MD Specimen: Skin, right frontal scalp 4 3:37 PM NEGATIVE RETOUCHER DERMATOPATHOLOGY LABORATORY Final Diagnosis Specimen A. SKIN, right frontal scalp: HYPERPLASTIC (HYPERTROPHIC) ACTINIC KERATOSIS, INFLAMED (L57.0) EPIDERMAL NECROSIS SUGGESTIVE OF EXCORIATION (L98.499) 4 3:37 PM NEGATIVE RETOUCHER DERMATOPATHOLOGY LABORATORY Clinical History Basal Cell Carcinoma 4 3:37 PM NEGATIVE RETOUCHER DERMATOPATHOLOGY LABORATORY Gross Description Specimen A: Received is one formalin filled container labeled with the patient's name and designated right frontal scalp. The specimen consists of a shave biopsy measuring 7x5x1 mm. Jar 0. 4 3:37 PM [facility] DERMATOPATHOLOGY LABORATORY Microscopic Description Specimen A. SKIN, right frontal scalp: There is hyperkeratosis alternating with parakeratosis. There is epidermal hyperplasia with disorderly maturation of keratinocytes with nuclear pleomorphism confined to the lower half of the epidermis. There is a lymphohistiocytic infiltrate within the dermis. The epidermis is focally necrotic and covered with a scale-crust. There is fibrin at the base. 4 3:37 PM [facility] DERMATOPATHOLOGY LABORATORY Disclaimer An external and internal positive and negative controls are appropriate for the histochemical, immunohistochemical and immunofluorescence stain(s) in this case (if any), except where stated explicitly. The performance characteristics of the stain(s) cited in this report were developed and its performance characteristic determined by the Dermatopathology Laboratory at [facility], directed by Dr. Neptali Rivera. These tests need not be, and therefore are not, approved by the [place] Food and Drug Administration. The tests are used for clinical purposes. Billing Codes Specimen Charges Stain Charges [id number] 1 4 3:37 PM [facility] DERMATOPATHOLOGY LABORATORY Embedded Images 4 3:37 PM [facility] DERMATOPATHOLOGY LABORATORY Pathology/Cytolog y TISSUE SPECIMEN FROM SKIN / Unknown 10/18/2024 10/19/2024 11:53 AM NEGATIVE RETOUCHER Theresa Torrez CRYOGENICS REPAIRER-MICROSOFT INFRASTRUCTURE CONSULTANT LAB - PATH OLOGY/CYTOLOGY ORDERABLES DERMATOPATHOLOGY LABORATORY [facility] - Department of Dermatology [address] [phone]
--- OUTSIDE RECORDS SUMMARY | 2024-12-08 12:48 | XMS_ITS | Clinical Summary ---
Author Organization [facility] Address [address] [place] [phone] Phone Care Team Providers Care Sustainability Executive Director Name Role Phone Fabby Raymundo MD Primary [...] 72 05/22/2022 10:30 AM CDT Temperature 36.7 C (98.1 F) 05/22/2022 10:30 AM CDT Respiratory Rate - - Oxygen Saturation - [...] - PCV) 1954 COVID-19 Vaccine (3 - season) 2024, 01/01/2021 Influenza Vaccine (#1) 2024 Care Teams Sustainability Executive Director Relationship Specialty Start Date End Date Fabby Raymundo MD [address] [place] [address] PCP - General Internal Medicine 02/06/21
--- OUTSIDE RECORDS SUMMARY | 2024-12-08 12:48 | XMS_ITS | Clinical Summary ---
Author Organization [facility] Address [address] [facility] [place] [address] Care Team Providers Care Range Feeder Name Role Phone Unavailable Primary Care Provider Unavailabl e Source Comments [facility],non-owned Affiliates and Associated Physician Practices is amultiple site organization consisting of ambulatory clinics and hospital sitesin [place], [place], [place] and [place]. This disclosure is being madepursuant to the Care Everywhere program and may not contain all information available regarding this patient. Last updated 18.[facility] Encounters Date Type Department Care Team Description 10/18/2024 Lab Requisition [facility] - DermPath Lab [address] [facility] [place] [id number] Theresa Torrez APRN-CHRISTINE Neoplasm of uncertain behavior of skin from Last 3 Months Social History Tobacco Use Types Packs/Day Years Used Date Smoking Tobacco: Never Assessed Sex and Gender Information Value Date Recorded Sex Assigned at Not on file Gender Identity Not on file Sexual Orientation Not on file Plan of Treatment Health Maintenance Due Date Last Done Comments MEDICARE AWV 12 MONTHS 1950 HEPATITIS C SCREENING 03/28/1966 [...] Comments DERMATOPATHOLOGY Routine 10/18/2024 12:0 0 AM UTILITY APPRAISER Neoplasm of uncertain behavior of skin from Last 3 Months Results * DERMATOPATHOLOGY (10/18/2024 12:00 AM UTILITY APPRAISER) Case Report Dermatopathology Report Case: [id number] Authorizing Provider: Theresa Torrez, Collected: 10/18/2024 12:00 AM HISTORY INSTRUCTOR-FLYING INSTRUCTOR Ordering Location: [facility] - Received: 10/19/2024 11:53 AM DermPath Lab Pathologist: Viridiana Leavitt MD Specimen: Skin, right frontal scalp 3:37 PM [facility] DERMATOPATHOLOGY LABORATORY Final Diagnosis Specimen A. SKIN, right frontal scalp: HYPERPLASTIC (HYPERTROPHIC) ACTINIC KERATOSIS, INFLAMED (L57.0) EPIDERMAL NECROSIS SUGGESTIVE OF EXCORIATION (L98.499) 3:37 PM [facility] DERMATOPATHOLOGY LABORATORY Clinical History Basal Cell Carcinoma 3:37 PM [facility] DERMATOPATHOLOGY LABORATORY Gross Description Specimen A: Received is one formalin filled container labeled with the patient's name and designated right frontal scalp. The specimen consists of a shave biopsy measuring 7x5x1 mm. Jar 0. 3:37 PM [facility] DERMATOPATHOLOGY LABORATORY Microscopic Description Specimen [...] is fibrin at the base. 3:37 PM [facility] DERMATOPATHOLOGY LABORATORY Disclaimer An external and internal positive and negative controls are appropriate for the histochemical, immunohistochemical and immunofluorescence stain(s) in this case (if any), except where stated explicitly. The performance characteristics of the stain(s) cited in this report were developed and its performance characteristic determined by the Dermatopathology Laboratory at [facility], directed by Dr. Neptali Rivera. These tests need not be, and therefore are not, approved by the [place] Food and Drug Administration. The tests are used for clinical purposes. Billing Codes Specimen Charges Stain Charges 55341 1 4 3:37 PM [facility] DERMATOPATHOLOGY LABORATORY Embedded Images 4 3:37 PM [facility] DERMATOPATHOLOGY LABORATORY Pathology/Cytolog y TISSUE SPECIMEN FROM SKIN / Unknown 10/18/2024 10/19/2024 11:53 AM UTILITY APPRAISER Theresa Torrez APRN-FLYING INSTRUCTOR LAB - PATH OLOGY/CYTOLOGY ORDERABLES DERMATOPATHOLOGY LABORATORY [facility] - Department of Dermatology [address] [phone] from Last 3 Months Timothy Lindsay Personal/Family Self [address] [place] [address]
--- NOTE | 2024-12-08 16:35 | WPDSIXMINUTE ---
Six Minute Walk Procedure Procedure Performed Pulmonary Stress Test (6 min walk) Six Minute Walk Six Minute Walk: This is a 6 minute walk test. The test was performed and interpreted in accordance with the 2014 ERS/ATS task force guidelines. Findings: The patient's resting room air oxygen saturation measured by pulse oximetry was 96%, the heart rate was 86 bpm, and the modified Caleb dyspnea score was 1. Patient ambulated for 366 meters and oxygen saturation remained 89 to 92%. At the end of the study the heart rate was 106 bpm and the modified Caleb dyspnea score was 3. The patient did not qualify for supplemental oxygen at rest or with ambulation. There are no prior studies for comparison.
== END 2024-12-08 12:45 | disposition home or self-care (01) ==
PROVIDERS: PCP Family Medicine; Visit Provider Internal Medicine Pulmonary Disease
DX: J84.9 Interstitial pulmonary disease, unspecified (principal)
CPT/HCPCS: 94618

== ENCOUNTER 2025-03-28 13:50 | Outpatient (CLI) | payer MEDICARE, OTHER, SELFPAY ==
--- NOTE | 2025-03-28 13:54 | ECHO_ITS ---
Patient Info Name: Timothy Lindsay Age: 74 years : 1950 Gender: Male Ht: 72 in Wt: 220 lbs BSA: 2.27 m2 HR: 62 bpm BP: 116 / 76 mmHg Heart Rhythm: Sinus Rhythm Technical Quality: Good Exam Date: 03/28/2025 2:05 PM Patient Status: O Admit Date: 03/28/2025 Exam Type: CA echo doppler color flow Complete two-dimensional, color flow and Doppler transthoracic echocardiogram is performed. Underwriting Consultant: Renee Proctor Attending Provider: Jp Yuen Summary 1. Left ventricular chamber dimension is normal. 2. Left ventricular systolic function is normal, estimated at 60-65. 3. There is mildly increased left ventricular wall thickness. 4. The left ventricular diastolic function is grade I diastolic dysfunction. 5. Right ventricular systolic function is normal. 6. Left atrial chamber dimension is mildly enlarged. 7. There is moderate aortic valve calcification. 8. There is mild tricuspid valve regurgitation. 9. Estimated pulmonary arterial systolic pressure is 28 mmHg. Left Ventricle Left ventricular chamber dimension is normal. Left ventricular systolic function is normal, estimated at 60-65. There is mildly increased left ventricular wall thickness. The left ventricular diastolic function is grade I diastolic dysfunction. Right Ventricle Right ventricular chamber dimension is normal. Right ventricular systolic function is normal. Left Atria Left atrial chamber dimension is mildly enlarged. Right Atria Right atrial chamber dimension is normal. Atrial Septum Intact interatrial septum visualized by color flow imaging. Aortic Valve The aortic valve is trileaflet. There is no aortic valve stenosis. There is trace aortic valve regurgitation. There is moderate aortic valve calcification. Pulmonic Valve The pulmonic valve is not well visualized. Mitral Valve There is trace mitral valve regurgitation. Tricuspid Valve There is mild tricuspid valve regurgitation. Estimated pulmonary arterial systolic pressure is 28 mmHg. Pericardium/Pleural There is no pericardial effusion. Inferior Vena Cava Normal inferior vena cava with >50% collapse upon inspiration consistent with normal right atrial pressure, 3 mmHg. Aorta The aortic root size at the sinus of Valsalva is normal. Left Ventricular Outflow Tract Name Value Normal LVOT 2D LVOT Diameter 2.0 cm LVOT Doppler LVOT Peak Velocity 119 cm/s LVOT Peak Gradient 6 mmHg LVOT Mean Gradient 4 mmHg LVOT VTI 28 cm LVOT VTI/AV VTI Ratio 0.7 LVOT Stroke Volume 91 ml LVOT CO 5.7 l/min LVOT CI 2.5 l/min/m2 Pulmonic Valve Name Value Normal RVOT Doppler RVOT Peak Velocity 80 cm/s RVOT Peak Gradient 3 mmHg PV Doppler PV Peak Velocity 125 cm/s PV Peak Gradient 6 mmHg Mitral Valve Name Value Normal MV Diastolic Function MV E Peak Velocity 64 cm/s MV A Peak Velocity 69 cm/s MV E/A 0.9 MV Decel Time (PW) 287 ms Tricuspid Valve Name Value Normal TV Regurgitation Doppler TR Peak Velocity 250 cm/s TR Peak Gradient 25 mmHg Estimated PAP/RSVP RA Pressure 3 mmHg <=5 PA Systolic Pressure 28 mmHg <36 RV Systolic Pressure 28 mmHg <36 TV Annular TDI TV Lateral Liberty s' Velocity 14.6 cm/s >=9.5 Aorta Name Value Normal Ascending Aorta Ao Root Diameter (MM) 3.6 cm Ao Root Diam Index (MM) 1.6 cm/m2 Aortic Valve Name Value Normal AV Doppler AV Peak Velocity 190 cm/s AV Peak Gradient 15 mmHg AV Mean Gradient 8 mmHg AV VTI 38 cm AV Area (Cont Eq VTI) 2.4 cm2 >=3.0 AV Area (Cont Eq Roverto) 2.0 cm2 AV DI (Roverto) 0.62 AV Regurgitation 2D LVOT Area 3.3 cm2 Ventricles Name Value Normal LV Dimensions 2D/MM IVS Diastolic Thickness (2D) 1.0 cm 0.6-1.0 LVID Diastole (2D) 4.9 cm 4.2-5.8 LVIW Diastolic Thickness (2D) 0.9 cm 0.6-1.0 LVID Systole (2D) 2.5 cm 2.5-4.0 LVOT Diameter 2.0 cm LV Mass (2D Cubed) 172.27 g 88.00-224.00 LV Mass Index (2D Cubed) 76 g/m2 49-115 Relative Wall Thickness (2D) 0.38 <=0.42 LV Fractional Shortening/Ejection Fraction 2D/MM LV Fractional Shortening (2D) 50 % 25-43 LV EF (2D Teichholz) 81 % LV Diastolic Volume (4C MOD) 68 ml LV EF (4C MOD) 57 % LV Diastolic Volume (2C MOD) 81 ml LV EF (2C MOD) 65 % LV Diastolic Volume (BP MOD) 75 ml 62-150 LV Diastolic Volume Index (BP MOD) 33 ml/m2 34-74 LV Systolic Volume (BP MOD) 30 ml 21-61 LV Systolic Volume Index (BP MOD) 13 ml/m2 11-31 LV EF (BP MOD) 60 % 52-72 LV Diastolic Length (4C) 8.9 cm LV Systolic Length (4C) 7.4 cm LV Stroke Volume (4C MOD) 39 ml Atria Name Value Normal LA Dimensions LA Dimension (MM) 5.7 cm 3.0-4.0 LA Volume (4C A-L) 32 ml LA Volume (BP A-L) 43 ml RA Dimensions RA Systolic Major [place] Length (4C) 6.7 cm 2.1-2.7 RA Area (4C) 13.5 cm2 <=18.0 Report Signatures
--- OUTSIDE RECORDS SUMMARY | 2025-03-28 13:58 | XMS_ITS | Clinical Summary ---
Author Organization [facility] Address [address] [place] [address] Care Team Providers Care Short Range Air Defense Artillery Name Role Phone Unavailable Primary Care Provider Unavailabl e Source Comments [facility],non-owned Affiliates and Associated Physician Practices is amultiple site organization consisting of ambulatory clinics and hospital sitesin [place], [place], [place] and [place]. This disclosure is being madepursuant to the Care Everywhere program and may not contain all information available regarding this patient. Last updated 18.[facility] Social History Tobacco Use Types Packs/Day Years Used Date Smoking Tobacco: Never Assessed Sex and Gender Information Value Date Recorded Sex Assigned at Not on file Legal Sex Male 2:35 PM FRONT SERVICES AGENT Gender Identity Not on file Sexual Orientation [...] VACCINE ( - 2023-2 5 season) 2024 DEPRESSION SCREENING 11/02/2024 INFLUENZA VACCINE (Season Ended) 2025 HEPATITIS B VACCINE Aged Out No longe r eligible based on patient's age to complete this topic HIB VACCINE Aged Out No longer eligi ble based on patient's age to complete this topic HPV VACCINE Aged Out No longer eligi ble based on patient's age to complete this topic MENINGOCOCCAL (Group B) VACC INE SHARED DECISION-MAKING Aged Out No longer eligibl e based on patient's age to complete this topic MENINGOCOCCAL GROUPS A/C/Y/W VACCINE Aged Out No longer eligible b ased on patient's age to complete this topic Insurance MEDICARE [facility] MEDICARE
--- OUTSIDE RECORDS SUMMARY | 2025-03-28 13:58 | XMS_ITS | Clinical Summary ---
Author Organization [facility] Address [address] [place] [id number] Phone Care Team Providers Care Translator And Interpreter Name Role Phone Fabby Raymundo MD Primary Care Provider Allergies Active Allergy Reactions Criticality Noted Date Comments Piroxicam Low 10/16/2011 Sulfa Antibiotics 10/31/2019 Medications cetirizine (ZyrTEC) 10 MG tablet TK 1 T PO D 09/28/2019 Active cholecalciferol (VITAMIN D-3) 50 MCG (1999) capsule Take 2,000 Units by mouth 1 (one) time each day Active Active Problems Problem Noted Date Diagnosed Date Interstitial pulmonary disease 03/19/2020 Mixed hyperlipidemia 12/05/2019 Stage 3b chronic kidney disease 10/27/2019 Immunizations Immunization Administration Dates Next Due Influenza TIV (IM) [...] Assigned at Male 05/20/2022 3:08 PM MDT Legal Sex Male 8:18 AM MDT Gender Identity Male 05/20/2022 3:08 PM [...] Comments Pneumococcal PPSV23/PCV13 65 + Years / Low and Medium Risk (1 of 4 - PCV) 1998 COVID-19 Vaccine ( - season) 2024, 01/01/2021 Influenza Vaccine (Season Ended) 2025 Insurance MEDICARE [facility] Care Teams Translator And Interpreter Relationship Specialty Start Date End Date Fabby Raymundo MD [address] [place] [address] PCP - General Internal Medicine 02/06/21
--- OUTSIDE RECORDS SUMMARY | 2025-03-28 13:58 | XMS_ITS | Encounter Summary ---
Author Organization [facility] Address [address] [facility] [place] [address] Care Team Providers Care Outpatient Physical Therapist Assistant Name Role Phone Unavailable Primary Care Provider Unavailabl e Encounter Details Date Type Department Care Team (Late st Contact Info) Description 10/18/2024 Lab Requisition [facility] - DermPath Lab [address] [facility] [place] [phone] Theresa Torrez APRN-CNP [facility] DERMATOLOGY [address] [place] [phone] Neoplasm of uncertain behavior of skin Social History Tobacco Use Types Packs/Day Years Used Date Smoking Tobacco: Never Assessed Sex and Gender Information Value Date Recorded Sex Assigned at Not on file Legal Sex Male 2:35 PM FINAL CIGAR AND BOX EXAMINER Gender Identity Not on file Sexual Orientation Not on file documented as of this encounter Plan of Treatment Not on file documented as of this encounter Procedures Procedure Name Priority Date/Time Associated Diagnosis Comments DERMATOPATHOLOGY Routine 10/18/2024 12:0 0 AM FINAL CIGAR AND BOX EXAMINER Neoplasm of uncertain behavior of skin documented in this encounter Results * DERMATOPATHOLOGY (10/18/2024 12:00 AM FINAL CIGAR AND BOX EXAMINER) Case Report Dermatopathology Report Case: [id number] Authorizing Provider: Theresa Torrez, Collected: 10/18/2024 12:00 AM CRANBERRY BOG SUPERVISOR-PORTABLE IRRIGATION OPERATOR Ordering Location: [facility] - Received: 10/19/2024 11:53 AM DermPath Lab Pathologist: Viridiana Leavitt MD Specimen: Skin, right frontal scalp 4 3:37 PM FINAL CIGAR AND BOX EXAMINER DERMATOPATHOLOGY LABORATORY Final Diagnosis Specimen A. SKIN, right frontal scalp: HYPERPLASTIC (HYPERTROPHIC) ACTINIC KERATOSIS, INFLAMED (L57.0) EPIDERMAL NECROSIS SUGGESTIVE OF EXCORIATION (L98.499) 4 3:37 PM [facility] DERMATOPATHOLOGY LABORATORY at [address] FINAL CIGAR AND BOX EXAMINER Clinical History Basal Cell Carcinoma 4 3:37 PM [facility] DERMATOPATHOLOGY LABORATORY Gross Description Specimen A: Received is one formalin filled container labeled with the patient's name and designated right frontal scalp. The specimen consists of a shave biopsy measuring 7x5x1 mm. Jar 0. 4 3:37 PM [facility] DERMATOPATHOLOGY LABORATORY Microscopic Description Specimen [...] fibrin at the base. 4 3:37 PM [facility] DERMATOPATHOLOGY LABORATORY Disclaimer An external and internal positive and negative controls are appropriate for the histochemical, immunohistochemical and immunofluorescence stain(s) in this case (if any), except where stated explicitly. The performance characteristics of the stain(s) cited in this report were developed and its performance characteristic determined by the Dermatopathology Laboratory at [facility], directed by Dr. Neptali Rivera. These tests need not be, and therefore are not, approved by the [place] Food and Drug Administration. The tests are used for clinical purposes. Billing Codes Specimen Charges Stain Charges 85081 1 4 3:37 PM [facility] DERMATOPATHOLOGY LABORATORY Embedded Images 4 3:37 PM [facility] DERMATOPATHOLOGY LABORATORY Pathology/Cytolog y TISSUE SPECIMEN FROM SKIN / Unknown 10/18/2024 10/19/2024 11:53 AM [facility] Theresa Torrez APRN-PORTABLE IRRIGATION OPERATOR LAB - PATHOLOGY/CY TOLOGY ORDERABLES Final Result DERMATOPATHOLOGY LABORATORY [facility] - Department of Dermatology [address], [address] [phone] documented in this encounter Visit Diagnoses Diagnosis Neoplasm of uncertain behavior of skin documented in this encounter
--- OUTSIDE RECORDS SUMMARY | 2025-03-28 13:58 | XMS_ITS | Clinical Summary ---
Author Organization [facility] Care Team Providers Care Cloud Physicist Name Role Phone Unavailable Primary Care Provider [...]
== END 2025-03-28 13:51 | disposition home or self-care (01) ==
PROVIDERS: Visit Provider Internal Medicine Pulmonary Disease
DX: R06.02 Shortness of breath (principal); J84.9 Interstitial pulmonary disease, unspecified; I36.1 Nonrheumatic tricuspid (valve) insufficiency; I70.0 Atherosclerosis of aorta
CPT/HCPCS: 93306

== ENCOUNTER 2025-05-16 07:43 | Outpatient (CLI) | payer MEDICARE, OTHER, SELFPAY ==
--- NOTE | ~2025-05-16 | CT_ITS ---
EXAMINATION: CT chest high resolution [facility] DATE: 05/16/2025 08:02 INDICATION: Interstitial pulmonary disease. TECHNIQUE: Computed tomography (CT) of the chest was performed without intravenous contrast. The dose -length product was 394.01 mGy-cm. Automated exposure control and iterative reconstruction technique were employed. COMPARISON: CT dated 10/13/2024 FINDINGS: No significant pleural or pericardial effusion. There are coarse interstitial changes perip herally in both lungs with areas of honeycombing peripherally, consistent with stable chronic interst itial lung disease. No endobronchial lesions. No suspicious pulmonary nodules or masses. Elevated rig ht diaphragm. Mild mediastinal lymphadenopathy, likely reactive. There is mild atherosclerosis. Small hiatal hernia. No significant pleural or pericardial effusion. There are gallstones. Large right rg al cysts. IMPRESSION: 1. Stable chronic interstitial pulmonary fibrosis. Reviewed, dictated and finalized at location B.
--- OUTSIDE RECORDS SUMMARY | 2025-05-16 07:47 | XMS_ITS | Clinical Summary ---
Author Organization [facility] Address [address] [place] [address] Care Team Providers Care Deoiling Machine Operator Name Role Phone Unavailable Primary Care Provider Unavailabl e Source Comments [facility],non-owned Affiliates and Associated Physician Practices is amultiple site organization consisting of ambulatory clinics and hospital sitesin [place], [place] and [place]. This disclosure is being madepursuant to the Care Everywhere program and may not contain all information available regarding this patient. 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
--- OUTSIDE RECORDS SUMMARY | 2025-05-16 07:47 | XMS_ITS | Encounter Summary ---
Author Organization [facility] Address [address] [place] [address] Care Team Providers Care Director Of Academic Name Role Phone Unavailable Primary Care Provider Unavailabl e Encounter Details Date Type Department Care Team (Late st Contact Info) Description 10/18/2024 Lab Requisition [facility] - DermPath Lab [address] [facility] [place] [phone] Theresa Torrez APRN-CNP [facility] DERMATOLOGY [address] [place] [phone] Neoplasm of uncertain behavior of skin Social History Tobacco Use Types Packs/Day Years Used Date Smoking Tobacco: Never Assessed Sex and Gender Information Value Date Recorded Sex Assigned at Not on file Legal Sex Male 2:35 PM MIXER LEVER OPERATOR Gender Identity Not on file Sexual Orientation Not on file documented as of this encounter Plan of Treatment Not on file documented as of this encounter Procedures Procedure Name Priority Date/Time Associated Diagnosis Comments DERMATOPATHOLOGY Routine 10/18/2024 12:0 0 AM MIXER LEVER OPERATOR Neoplasm of uncertain behavior of skin documented in this encounter Results * DERMATOPATHOLOGY (10/18/2024 12:00 AM MIXER LEVER OPERATOR) Case Report Dermatopathology Report Case: [id number] Authorizing Provider: Theresa Torrez, Collected: 10/18/2024 12:00 AM WELDER APPRENTICE COMBINATION-SPLASH LINE OPERATOR Ordering Location: [facility] - Received: 10/19/2024 11:53 AM DermPath Lab Pathologist: Viridiana Leavitt MD Specimen: Skin, right frontal scalp 4 3:37 PM MIXER LEVER OPERATOR DERMATOPATHOLOGY LABORATORY Final Diagnosis Specimen A. SKIN, right frontal scalp: HYPERPLASTIC (HYPERTROPHIC) ACTINIC KERATOSIS, INFLAMED (L57.0) EPIDERMAL NECROSIS SUGGESTIVE OF EXCORIATION (L98.499) 4 3:37 PM [facility] DERMATOPATHOLOGY LABORATORY at 1537 MIXER LEVER OPERATOR Clinical History Basal Cell Carcinoma 4 3:37 PM [facility] DERMATOPATHOLOGY LABORATORY Gross Description Specimen A: Received is one formalin filled container labeled with the patient's name and designated right frontal scalp. The specimen consists of a shave biopsy measuring 7x5x1 mm. Jar 0. 4 3:37 PM [facility] DERMATOPATHOLOGY LABORATORY Microscopic Description Specimen A. [...] fibrin at the base. 4 3:37 PM [facility] DERMATOPATHOLOGY LABORATORY Disclaimer An external and internal positive and negative controls are appropriate for the histochemical, immunohistochemical and immunofluorescence stain(s) in this case (if any), except where stated explicitly. The performance characteristics of the stain(s) cited in this report were developed and its performance characteristic determined by the Dermatopathology Laboratory at [facility], directed by Dr. Neptali Rivera. These tests need not be, and therefore are not, approved by the [place] Food and Drug Administration. The tests are used for clinical purposes. Billing Codes Specimen Charges Stain Charges 39977 1 4 3:37 PM [facility] DERMATOPATHOLOGY LABORATORY Embedded Images 4 3:37 PM [facility] DERMATOPATHOLOGY LABORATORY Pathology/Cytolog y TISSUE SPECIMEN FROM SKIN / Unknown 10/18/2024 10/19/2024 11:53 AM [facility] Theresa Torrez APRN-SPLASH LINE OPERATOR LAB - PATHOLOGY/CY TOLOGY ORDERABLES Final Result DERMATOPATHOLOGY LABORATORY [facility] - Department of Dermatology [address] [phone] documented in this encounter Visit Diagnoses Diagnosis Neoplasm of uncertain behavior of skin documented in this encounter
--- OUTSIDE RECORDS SUMMARY | 2025-05-16 07:47 | XMS_ITS | Continuity of Care Document ---
Author Name [facility] Organization [facility] Care Team Providers Care Canning Machine Operator Name Role Phone [facility] Unavailable Unavailable Problems Combined list of problems from [facility] and [facility] facilities. It does not include entries that were removed or entered in error. Problem Status Onset Date Problem Type Date of Resolution Comments Source Routine Medical Exam Active Condition May 06, 2012 Entered By: JULITO YORK Comment: LAM VOLUNTEER COMPUTER AIDE EXAM [facility] Medications Combined list of outpatient medications from [facility] and [facility] facilities.Medications provided include 1) outpatient medications from the last 15 months, and 2) patient-reported medications. Medication Details Route Status Patient Instructions Prescription Expires Prescription Number Last Dispense Date Ordering Provider Order Date Order Qty Source KETOCONAZOL E (ketoconazo le), 2 %, SHAMPOO, TOPICAL, KHUSHBOO RANCH DC, 120 ml BOTTLE Active [id number] 2023 240 Pharmac y Data Transac tion Service Facilit y Allergies, Adverse Reactions, Alerts Combined list of allergies from [facility] and [facility] facilities. It does not include entries that were removed or entered in error. Substance Category Reaction Severity Reaction type Status Date Reported Comments Source PIROXICAM Propensity to adverse reactions to drug (finding) Urticaria active 2 [facility] SULFA DRUGS Propensity to adverse reactions to drug (finding) Urticaria active 2 [facility] Immunizations Combined list of available immunizations from the [facility] and [facility] facilities. Immunization Series Date Given Administered By Site Reaction Lot Number CVX Code Drug Turbine Subassembler Status Comments Source hepatitis B vaccine, adult dosage 1 2018 Unknown, Provider [id number] [address] [place] [address] (Harjit) complet ed hepatitis B vaccine, adult dosage [facility] hepatitis B vaccine, adult dosage 1 2018 Unknown, Provider [id number] [facility]) complet ed hepatitis B vaccine, adult dosage [facility] hepatitis A vaccine, adult dosage 1 2018 Unknown, Provider [id number] [facility] ([facility]) complet ed hepatitis A vaccine, adult dosage [facility] TDAP 2011 115 complet ed [facility] Encounters Combined list of: 1) Encounters from Department of Veterans Affairs facilities going backup to the last 18 months, not all VA inpatient encounters are included; 2) Encounters from the Department of Defense facilities going backup to 280 months. Location Location Details Encounter Type Encounter Number Reason For Visit Attending Provider ADM Date DC Date Status Disposition Source [facility] Outpatient Encounter [id number] 08/[address] [facility] Social History Combined list of available smoking, tobacco, and other social history from Department of Defense and Veterans Affairs facilities. Social History Type Response Date Comment Sourc e This section is an empty social history section. [facility]
--- OUTSIDE RECORDS SUMMARY | 2025-05-16 07:47 | XMS_ITS | Clinical Summary ---
Author Organization [facility] Address [address] [place] [id number] Phone Care Team Providers Care Avionics System Engineer Name Role Phone Fabby Raymundo MD Primary [...] / Low and Medium Risk (1 of 2 - PCV) 1998 COVID-19 Vaccine (3 - season) 2024, 01/01/2021 Influenza Vaccine (#1) 2025 Insurance MEDICARE [facility] Care Teams Avionics System Engineer Relationship Specialty Start Date End Date Fabby Raymundo MD [address] [place] [address] PCP - General Internal Medicine 02/06/21
--- OUTSIDE RECORDS SUMMARY | 2025-05-16 07:47 | XMS_ITS | Clinical Summary ---
Author Organization [facility] Care Team Providers Care Sales Order Coordinator Name Role Phone Unavailable Primary Care Provider [...]
--- NOTE | 2025-05-16 13:04 | WPDPFTINT ---
PFT Procedure Performed PFT Procedure Performed Spirometry with Pre/Post Bronchodilator Plethysmography (Lung Vol) Diffusing Cap (DLCO) Flow Vol Loop PFT Interpretation This is a pulmonary function test with pre and post-bronchodilator spirometry, plethysmography and diffusing capacity. The test was performed and results interpreted in accordance with the 2019 and 2005 ATS/ERS Task Force guidelines respectively using the Global Lung Function Initiative-2012 reference equations. Patient demonstrated good effort and cooperation. Reproducibility criteria were met. The quality of the pre bronchodilator spirometry maneuver was Grade A and post bronchodilator spirometry maneuver was Grade B. Findings: Spirometry: The contour the inspiratory and expiratory flow tracing are normal. The pre bronchodilator FVC is 3.32 L, 84% predicted. The pre bronchodilator FEV1 is 2.66 L, 93% predicted. The pre bronchodilator FEV1: FVC ratio is 80%. The post bronchodilator FVC is 3.19 L, representing a 4% decrease. The post bronchodilator FEV1 is 2.67 L, representing no change. The post bronchodilator FEV1: FVC ratio is 84%. Plethysmography: The total lung capacity is 5.21 L, 69% predicted. The functional residual capacity is 3.03 L, 73% predicted. The residual volume is 1.80 L, 62% predicted. Diffusing capacity: The diffusing capacity unadjusted for hemoglobin and carboxyhemoglobin is 15.5, 67% predicted. The diffusing capacity adjusted for alveolar volume is 3.59, 109% predicted. In comparison to previous pulmonary function testing on 11/16/2024, the post bronchodilator FVC is unchanged from 3.28 L to 3.19 L. The post bronchodilator FEV1 is unchanged from 2.75 L to 2.67 L. The total lung capacity is unchanged from 5.79 L to 5.21 L. The functional residual capacity is unchanged from 3.12 L to 3.03 L. The residual volume is decreased from 2.30 L to 1.80 L. The diffusing capacity unadjusted for hemoglobin and carboxyhemoglobin is unchanged from 18.2 to 15.5. The diffusing capacity adjusted for alveolar volume is unchanged from 3.71 to 3.59. Impression: There is a mild restrictive ventilatory abnormality with a normal FEV1. The spirometry is normal without evidence of an obstructive abnormality. There is no significant improvement after inhaling a single dose of albuterol. The diffusing capacity is normal. In comparison to previous pulmonary function testing on 11/16/2024, there has been a greater than anticipated time dependent decrease in the residual volume with no significant change in the FVC, FEV1, total lung capacity, functional residual capacity or diffusing capacity. Clinical correlation is recommended.
== END 2025-05-16 07:44 | disposition home or self-care (01) ==
PROVIDERS: PCP Family Medicine; Visit Provider Internal Medicine Pulmonary Disease
DX: J84.9 Interstitial pulmonary disease, unspecified (principal); J98.4 Other disorders of lung
CPT/HCPCS: 71250; 94060; 94726; 94729

== ENCOUNTER 2025-09-18 09:20 | Outpatient (CLI) | payer MEDICARE, OTHER, SELFPAY ==
--- NOTE | ~2025-09-18 | XR_ITS ---
EXAMINATION: XR shoulder RT min 2V, 09/18/2025 9:41 LEARNING TECHNOLOGIST HISTORY: Pain in right shoulder x 2 days COMPARISON: No comparisons available. Findings: No acute fracture or malalignment. severe degenerative changes Soft tissues unremarkable. Impression: No acute fracture or malalignment. Reviewed, dictated and finalized at location P. NING TECHNOLOGIST Impression: No acute fracture or malalignment.
--- NOTE | ~2025-09-18 | XR_ITS ---
XR lumbar spine min 4V Indication: Low back pain, back pain x 2 years Comparison: None Findings: Moderate loss of vertebral height. Levoconvex scoliosis. Grade 1 anterolisthesis of L4 on L5, grade 1 retrolisthesis of L2 on L3 and L3 on L4. Severe loss of disc height throughout. Soft tissues unremarkable Impression: No acute abnormality. Reviewed, dictated and finalized at location P. L CONTAINER MAKER Impression: No acute abnormality.
== END 2025-09-18 09:21 | disposition home or self-care (01) ==
LOC: GOSHIMG 09:21
PROVIDERS: PCP Family Medicine; Visit Provider Family Medicine
DX: M51.369 Other intervertebral disc degeneration, lumbar region without mention of lumbar back pain or lower extremity pain (principal); M54.50 Low back pain, unspecified
CPT/HCPCS: 72110; 73030

== ENCOUNTER 2025-10-31 09:43 | Outpatient (CLI) | payer MEDICARE, OTHER, SELFPAY ==
--- OUTSIDE RECORDS SUMMARY | 2025-10-31 10:03 | XMS_ITS | Clinical Summary ---
Author Organization [facility] Address [address] [place] [address] Care Team Providers Care Model And Mold Maker Name Role Phone Unavailable Primary Care Provider Unavailabl e Source Comments [facility],non-owned Affiliates and Associated Physician Practices is amultiple site organization consisting of ambulatory clinics and hospital sitesin [place], [place], [place] and [place]. This disclosure is being madepursuant to the Care Everywhere program and may not contain all information available regarding this patient. 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
--- OUTSIDE RECORDS SUMMARY | 2025-10-31 10:03 | XMS_ITS | Clinical Summary ---
Author Organization [facility] Address [address] [place] [id number] Phone Care Team Providers Care Depositing Machine Operator Name Role Phone Fabby Raymundo MD Primary [...] PCV) 1998 COVID-19 Vaccine (3 - season) 2025, 01/01/2021 Influenza Vaccine (#1) 2025 Insurance MEDICARE [facility] Care Teams Depositing Machine Operator Relationship Specialty Start Date End Date Fabby Raymundo MD [address] [place] [address] PCP - General Internal Medicine 02/06/21
--- OUTSIDE RECORDS SUMMARY | 2025-10-31 10:03 | XMS_ITS | Clinical Summary ---
Author Organization [facility] Care Team Providers Care Erisa Attorney Name Role Phone Unavailable Primary Care Provider [...] 1-dose 75+ series) 2023 Influenza Immunization (#1) 2025 SARS-COV-2 Immunization (3 - season) 2025 01/23/2021, 01/01/2021 Human Papillomavirus (HPV) Immunization Aged Out No longer eligible b ased on patient's age to complete this topic Meningococcal Immunization (ACWY) Aged Out No longer eligible b ased on patient's age to complete this topic Rotavirus Immunization Aged Out No lo nger eligible based on patient's age to complete this topic
--- OUTSIDE RECORDS SUMMARY | 2025-10-31 10:03 | XMS_ITS | Encounter Summary ---
Author Organization [facility] Address [address] [place] [address] Care Team Providers Care Tractor Mechanic Name Role Phone Unavailable Primary Care Provider Unavailabl e Encounter Details Date Type Department Care Team (Late st Contact Info) Description 10/18/2024 Lab Requisition [facility] - DermPath Lab [address] [place] [id number] Theresa Torrez APRN-CNP [facility] DERMATOLOGY [address] [place] [phone] Neoplasm of uncertain behavior of skin Social History Tobacco Use Types Packs/Day Years Used Date Smoking Tobacco: Never Assessed Sex and Gender Information Value Date Recorded Sex Assigned at Not on file Legal Sex Male 2:35 PM UNIX CONSULTANT Gender Identity Not on file Sexual Orientation Not on file documented as of this encounter Plan of Treatment Not on file documented as of this encounter Procedures Procedure Name Priority Date/Time Associated Diagnosis Comments DERMATOPATHOLOGY Routine 10/18/2024 12:0 0 AM UNIX CONSULTANT Neoplasm of uncertain behavior of skin documented in this encounter Results * DERMATOPATHOLOGY (10/18/2024 12:00 AM UNIX CONSULTANT) Case Report Dermatopathology Report Case: [id number] Authorizing Provider: Theresa Torrez, Collected: 10/18/2024 12:00 AM FIRM ADMINISTRATOR-BROADCAST ENGINEER Ordering Location: [facility] - Received: 10/19/2024 11:53 AM DermPath Lab Pathologist: Viridiana Leavitt MD Specimen: Skin, right frontal scalp 4 3:37 PM UNIX CONSULTANT DERMATOPATHOLOGY LABORATORY Final Diagnosis Specimen A. 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 The specimen consists of a shave biopsy measuring 7x5x1 mm. Jar 0. 4 3:37 PM [facility] DERMATOPATHOLOGY LABORATORY Microscopic Description Specimen A. [...] at the base. 4 3:37 PM [facility] DERMATOPATHOLOGY LABORATORY Disclaimer An external and internal positive and negative controls are appropriate for the histochemical, immunohistochemical and immunofluorescence stain(s) in this case (if any), except where stated explicitly. The performance characteristics of the stain(s) cited in this report were developed and its performance characteristic determined by the Dermatopathology Laboratory at [facility], directed by Dr. Neptali Rivera. These tests need not be, and therefore are not, approved by the [place] Food and Drug Administration. The tests are used for clinical purposes. Billing Codes Specimen Charges Stain Charges 49437 1 4 3:37 PM [facility] DERMATOPATHOLOGY LABORATORY Embedded Images 4 3:37 PM [facility] DERMATOPATHOLOGY LABORATORY Pathology/Cytolog y TISSUE SPECIMEN FROM SKIN / Unknown 10/18/2024 10/19/2024 11:53 AM [facility] Theresa Torrez APRN-BROADCAST ENGINEER LAB - PATHOLOGY/CY TOLOGY ORDERABLES Final Result DERMATOPATHOLOGY LABORATORY [facility] - Department of Dermatology [address] [phone] documented in this encounter Visit Diagnoses Diagnosis Neoplasm of uncertain behavior of skin documented in this encounter
[2025-11-17 03:09] LABS: Anti-Jo-1 Ab <20 Units (<20); Anti-Ku Ab Negative (Negative); Anti-MDA-5 Ab (CADM-140) <20 Units (<20); Anti-NXP-2 (P140) Ab <20 Units (<20); Anti-PM/Scl-100 Ab <20 Units (<20); Anti-SAE1 Ab IgG <20 Units (<20); Anti-SS-A 52kD Ab IgG <20 Units (<20); Anti-TIF-1gamma Ab <20 Units (<20); Anti-U2 RNP Ab Negative (Negative); Anti-U3 RNP (Fibrillarin) Negative (Negative); U1 RNP Ab <20 Units (<20)
== END 2025-10-31 09:44 | disposition home or self-care (01) ==
PROVIDERS: PCP Family Medicine; Visit Provider Internal Medicine Critical Care Medicine
DX: J84.9 Interstitial pulmonary disease, unspecified (principal)
CPT/HCPCS: 86235; 86364